=== PATIENT | female | born 1955 | race Caucasian/White ===

== ENCOUNTER → 2023-07-13 | Outpatient (CLI) | payer MEDICARE ==
--- NOTE | 2023-07-14 01:00 | MR ---
MRI CERVICAL SPINE: CLINICAL HISTORY: Neck pain, BUE weakness/numbness. Neck pain, BUE weakness/numbness. TECHNIQUE: Multiplanar, multisequence imaging of the cervical spine is performed without IV contrast. COMPARISON: Cervical spine x-ray May 18, 2021. MRI cervical spine February 20, 2019 FINDINGS: Sagittal images of the cervical spine show the craniocervical junction to appear within nor mal limits. The cervical and upper thoracic spinal cord is normal in course, caliber, and signal. V ertebral alignment is anatomic. Artifact from anterior fusion plate and disc material C5-C6 and C6-C 7 levels is present. The vertebral body and intravertebral disk heights are normal above and below barreto rgical levels. The bone marrow signal intensity is within normal limits above and below surgical lev els.. Axial images show C2-C3 and C3-C4 levels appear within normal limits. Axial images at C4-C5 level showed broad based right paracentral disc protrusion and uncovertebral fa cet degenerative changes effacing the anterolateral thecal sac and causing mild to moderate right-antonette ed neural foraminal narrowing. Axial images at C5-C6 and C6-C7 level show susceptibility artifact. Axial images at C7-T1 level show slight anterolisthesis. Spinal canal is preserved. Bilateral neural foramina are patent. IMPRESSION: Postsurgical changes C5-C7 levels new from prior. Some degenerative changes C4-C5 and C7- T1 levels is now present.
== END | disposition home or self-care (01) ==
LOC: RADMRIMAIN 07:40 → MERGE 08:00
PROVIDERS: ATTEND Orthopaedic Surgery Orthopaedic Surgery of the Spine
DX: M47.23 Other spondylosis with radiculopathy, cervicothoracic region (principal); M50.222 Other cervical disc displacement at C5-C6 level; Z48.89 Encounter for other specified surgical aftercare; M50.223 Other cervical disc displacement at C6-C7 level; M50.123 Cervical disc disorder at C6-C7 level with radiculopathy; M50.122 Cervical disc disorder at C5-C6 level with radiculopathy; G99.2 Myelopathy in diseases classified elsewhere; E11.9 Type 2 diabetes mellitus without complications; E66.9 Obesity, unspecified; Z98.1 Arthrodesis status
CPT/HCPCS: 72141

== ENCOUNTER 2024-02-05 17:29 | Inpatient (IN) | payer MEDICARE ==
--- NOTE | 2024-02-05 17:57 | ED ---
Altered Mental Status HPI - General Source: patient, RN notes reviewed Mode of arrival: ambulatory Limitations: no limitations <Keara Guallpa - Last Filed: 02/05/24 20:09> - General Source: patient, RN notes reviewed, old records reviewed Mode of arrival: ambulatory Limitations: no limitations, altered mental status, physical limitation - History of Present Illness MD Complaint: altered mental status, confusion, weakness -: days(s) Consistency of Symptoms: getting worse Associated Symptoms: denies other symptoms <Pantera Cain - Last Filed: 02/09/24 23:08> - General Chief Complaint: Altered Mental Status Stated Complaint: AMS Time Seen by Provider: 02/05/24 17:40 - History of Present Illness Initial Comments: Quick [id number] female presents to the emergency department with family for altered mental status and confusion. Family states that they noticed a few days ago she started acting confused and became more tired and weak. Currently patient is denying symptoms of chest pain, shortness of breath, difficulty breathing, abdominal pain, headaches, urinary or bowel changes. (Keara Guallpa) This is a 69-year-old family presenting with patient for altered mental status and confusion that have been noticed for a few days now with recent increased fatigue and weakness family at bedside is concerned for patient's altered mental status and decreased activity level (Pantera Cain) - Related Data Home Medications Medication Instructions Recorded Confirmed metFORMIN HCL [Glucophage] 1,000 mg PO BID 05/07/21 02/06/24 Albuterol Inhaler [Ventolin Hfa 2 puff INHALATION RT-QID PRN 09/14/21 02/06/24 Inhaler] Ergocalciferol (Vitamin D2) 1,250 mcg PO DIRECTED 09/14/21 02/06/24 [Drisdol (50,000 Iu)] FLUoxetine HCL [PROzac] 60 mg PO DAILY 09/14/21 02/06/24 Gabapentin [Neurontin] 100 mg PO DIRECTED 09/14/21 02/06/24 Insulin Glargine,Hum.rec.anlog 1 dose SQ DIRECTED 09/14/21 02/06/24 [Lantus Solostar Pen] busPIRone HCl [Buspar] 5 mg PO BID PRN 09/14/21 02/06/24 Montelukast [Singulair] 10 mg PO DAILY 02/06/24 02/06/24 Omeprazole 40 mg PO DAILY 02/06/24 02/06/24 Rosuvastatin Calcium [Crestor] 40 mg PO DAILY 02/06/24 02/06/24 Previous Rx's Medication Instructions Recorded Losartan [Cozaar] 12.5 mg PO DAILY #15 tab 09/15/21 Metoprolol Tartrate [Lopressor] 25 mg PO BID #60 tab 09/15/21 Nitroglycerin Sl Tabs [Nitrostat] 0.4 mg SUBLINGUAL Q5M PRN #30 tab 09/15/21 Aspirin 81 mg PO DAILY tab 02/09/24 Ipratropium-Albuterol Nebulize 3 ml INHALATION TID #90 each 02/09/24 [Duoneb 0.5 mg-3 mg/3 ml Soln] Isosorbide Mononitrate ER [Imdur] 30 mg PO DAILY #0 02/09/24 Melatonin 3 mg PO HS PRN #30 tab 02/09/24 Nicotine 21Mg/24Hr Patch [Habitrol] 1 patch TRANSDERM DAILY #30 patch 02/09/24 Pantoprazole [Protonix] 40 mg PO AC-BRKFST #30 tab 02/09/24 dexAMETHasone ORAL [Hexadrol] 4 mg PO Q6HR #90 tab 02/09/24 Allergies Allergy/AdvReac Type Severity Reaction Status Date / Time codeine Allergy Anaphylaxis Verified 02/06/24 11:52 peanut Allergy Anaphylaxis Verified 02/06/24 11:52 Review of Systems ROS Other: All systems not noted in ROS Statement are negative. <Keara Guallpa - Last Filed: 02/05/24 20:09> ROS Other: All systems not noted in ROS Statement are negative. <Pantera Cain - Last Filed: 02/09/24 23:08> ROS Statement: Those systems with pertinent positive or pertinent negative responses have been documented in the HPI. Past Medical History Past Medical History: Cancer, COPD, Diabetes Mellitus, GERD/Reflux, Hyperlipidemia, Osteoarthritis (OA) Additional Past Medical History / Comment(s): Hx Covid Spring 2020. Uses O2 at 3L PRN. Hx rectal cancer within last 4 yrs(Can't remember exactly when). Bronchitis. Frequent ear infections. History of Any Multi-Drug Resistant Organisms: None Reported Past Surgical History: Cholecystectomy, Ear Surgery, Hernia Repair, Hysterectomy, Orthopedic Surgery Additional Past Surgical History / Comment(s): Hernia repair X3, throat surgery, ear surgeray X5, bilateral wrist surgery X5 total, hemorrhoidectomy - "was canc erous and they went back in to remove more". stents X 2 CX sep 13 2021. Past Anesthesia/Blood Transfusion Reactions: No Reported Reaction Past Psychological History: Anxiety, Depression Smoking Status: Current every day smoker Past Alcohol Use History: None Reported Past Drug Use History: None Reported - Past Family History Father Family Medical History: Cancer Mother Family Medical History: Cancer Additional Family Medical History / Comment(s): Thyroid cancer. <Keara Guallpa - Last Filed: 02/05/24 20:09> General Exam Limitations: no limitations <Keara Guallpa - Last Filed: 02/05/24 20:09> Limitations: no limitations, language barrier, altered mental status, physical limitation General appearance: alert, in no apparent distress, anxious Head exam: Present: atraumatic, normocephalic, normal inspection Eye exam: Present: normal appearance, PERRL, EOMI. Absent: scleral icterus, conjunctival injection, periorbital swelling ENT exam: Present: normal exam, mucous membranes moist Neck exam: Present: normal inspection. Absent: tenderness, meningismus, lymphadenopathy Respiratory exam: Present: normal lung sounds bilaterally. Absent: respiratory distress, wheezes, rales, rhonchi, stridor Cardiovascular Exam: Present: regular rate, normal rhythm, normal heart sounds. Absent: systolic murmur, diastolic murmur, rubs, gallop, clicks GI/Abdominal exam: Present: soft, normal bowel sounds. Absent: distended, tenderness, guarding, rebound, rigid Extremities exam: Present: normal inspection, full ROM, normal capillary refill. Absent: tenderness, pedal edema, joint swelling, calf tenderness Back exam: Present: normal inspection Neurological exam: Present: alert, oriented X3, CN II-XII intact Psychiatric exam: Present: normal affect, normal mood Skin exam: Present: warm, dry, intact, normal color. Absent: rash <Pantera Cain - Last Filed: 02/09/24 23:08> - General Exam Comments Initial Comments: Visual Physical Exam Vital signs reviewed General: Well-appearing, nontoxic, no acute distress. Head: Normocephalic, atraumatic Eyes: PERRLA, EOMI ENT: Airway patent Chest: Nonlabored breathing Skin: No visual rash, normal skin tone Neuro: Alert and oriented 3 Musculoskeletal: No gross abnormalities (Stieler,Keara) Course <Pantera Cain - Last Filed: 02/09/24 23:08> Vital Signs 02/05/24 02/05/24 02/05/24 17:40 18:52 19:20 Temperature 97.9 F Pulse Rate 80 88 73 Respiratory 20 18 14 Rate Blood Pressure 113/74 122/95 120/81 O2 Sat by Pulse 96 95 93 L Oximetry 02/05/24 02/05/24 02/05/24 21:43 22:05 23:23 Temperature Pulse Rate 85 76 72 Respiratory 19 26 H 29 H Rate Blood Pressure 135/77 109/52 115/69 O2 Sat by Pulse 91 L 92 L 94 L Oximetry 02/06/24 02/06/24 02/06/24 00:14 00:59 05:27 Temperature Pulse Rate 71 66 70 Respiratory 26 H 22 20 Rate Blood Pressure 126/70 114/55 121/66 O2 Sat by Pulse 95 95 94 L Oximetry - Reevaluation(s) Reevaluation #1: 02/05/24 18:40 Medical records reviewed (Pantera Cain) Reevaluation #2: 02/05/24 18:40 Patient symptoms unchanged (Pantera Cain) Reevaluation #3: 02/05/24 18:40 Patient and family are both informed of significant symptoms (Pantera Cain) Reevaluation #4: Was pt. sent in by a medical professional or institution (, PA, BURRING WHEEL OPERATOR, urgent care, hospital, or retirement...) When possible be specific @ -no Did you speak to anyone other than the patient for history (EMS, parent, family, police, friend...)? What history was obtained from this source @ -no Did you review nursing and triage notes (agree or disagree)? Why? @ -agree Are old charts reviewed (outside hosp., previous admission, EMS record, old EKG, old radiological studies, urgent care reports/EKG's, retirement records)? Report findings @ -yes Differential Diagnosis (chest pain, altered mental status, abdominal pain women, abdominal pain men, vaginal bleeding, weakness, fever, dyspnea, syncope, headache, dizziness, GI bleed, back pain, seizure, CVA, palpatations, mental health, musculoskeletal)? @ -prior EKG interpreted by me (3pts min.). @ -yes X-rays interpreted by me (1pt min.). @ -yes negative for acute disease CT interpreted by me (1pt min.). @ -Brain positive for metastasis cancer, lung positive for cancer on CT chest abdomen pelvis U/S interpreted by me (1pt. min.). @ -no What testing was considered but not performed or refused? (CT, X-rays, U/S, labs)? Why? @ -none What meds were considered but not given or refused? Why? @ -none Did you discuss the management of the patient with other professionals (professionals i.e. , PA, BURRING WHEEL OPERATOR, lab, RT, psych nurse, executive secretary social welfare, auto rental clerk, teacher, adult probation officer, case manager specialist)? Give summary @ -no Was smoking cessation discussed for >3mins.? @ -no Was critical care preformed (if so, how long)? @ -yes31 Were there social determinants of health that impacted care today? How? (H omelessness, low income, unemployed, alcoholism, drug addiction, transportation, low edu. Level, literacy, decrease access to med. care, residential, rehab)? @ -none Was there de-escalation of care discussed even if they declined (Discuss DNR or withdrawal of care, Hospice)? DNR status @ -no What co-morbidities impacted this encounter? (DM, HTN, Smoking, COPD, CAD, Cancer, CVA, ARF, Chemo, Hep., AIDS, mental health diagnosis, sleep apnea, morbid obesity)? @ -none Was patient admitted / discharged? Hospital course, mention meds given and route, prescriptions, significant lab abnormalities, going to OR and other pertinent info. @ - 69 female to the ER for evaluation. Patient has history of colon cancer and coming in for altered mental status for a few days it appears to come and go but worsening today and patient is found to have significant metastatic cancer to the brain Admitted Undiagnosed new problem with uncertain prognosis? @ -no Drug Therapy requiring intensive monitoring for toxicity (Heparin, Nitro, Insulin, Cardizem)? @ -no Were any procedures done? @ -no Diagnosis/symptom? @ -lung cancer with brain metastasis Acute, or Chronic, or Acute on Chronic? @ -Acute Uncomplicated (without systemic symptoms) or Complicated (systemic symptoms)? @ -Complicated Side effects of treatment? @ -no Exacerbation, Progression, or Severe Exacerbation? @ -exacerbation Poses a threat to life or bodily function? How? (Chest pain, [place], NH, pneumonia, PE, COPD, DKA, ARF, appy, cholecystitis, CVA, Diverticulitis, Homicidal, Suicidal, threat to staff... and all critical care pts) @ -yes significant cancer (Pantera Cain) Reevaluation #5: Differential Altered Mental Status: Hypoglycemia, DKA, hypercapnia, ETOH, overdose, CO poisoning, trauma, myxedema coma, HTN encephalopathy, infection, encephalitis, psychosis, intercranial hemorrhage, hepatic encephalopathy, meningitis, CVA, this is not meant to be an all-inclusive list (Pantera Cain) - Consultations Consultation #1: Spoke with Dr. Lyn who agrees to admit this patient (Pantera Cain) Medical Decision Making <Keara Guallpa - Last Filed: 02/05/24 20:09> - Lab Data Result diagrams: 02/06/24 05:33 02/06/24 05:33 - Radiology Data Radiology results: report reviewed (CT brain positive for metastatic cancer with vasogenic edema, CT chest abdomen pelvis positive for lung cancer), image reviewed <Pantera Cain - Last Filed: 02/09/24 23:08> - Medical Decision Making I completed the quick note portion of this chart signed Keara Guallpa PA-C (Keara Guallpa) 69 female to the ER for evaluation. Patient has history of colon cancer and coming in for altered mental status for a few days it appears to come and go but worsening today and patient is found to have significant metastatic cancer to the brain which appears to be primary lung (Pantera Cain) - Lab Data Lab Results 02/05/24 02/05/24 02/05/24 Range/Units 18:30 18:30 18:30 WBC 9.0 (3.8-10.6) k/uL RBC 5.11 (3.80-5.40) m/uL Hgb 16.8 H (11.4-16.0) gm/dL Hct 48.2 H (34.0-46.0) % MCV 94.3 (80.0-100.0) fL MCH 32.8 (25.0-35.0) pg MCHC 34.8 (31.0-37.0) g/dL RDW 13.4 (11.5-15.5) % Plt Count 296 (150-450) k/uL MPV 8.1 Neutrophils % 68 % Lymphocytes % 22 % Monocytes % 5 % Eosinophils % 1 % Basophils % 1 % Neutrophils # 6.1 (1.3-7.7) k/uL Lymphocytes # 2.0 (1.0-4.8) k/uL Monocytes # 0.5 (0-1.0) k/uL Eosinophils # 0.1 (0-0.7) k/uL Basophils # 0.1 (0-0.2) k/uL PT 10.1 (10.0-12.5) sec INR 0.9 (<1.2) APTT 23.8 (22.0-30.0) sec Sodium 136 L (137-145) mmol/L Potassium 4.6 (3.5-5.1) mmol/L Chloride 103 (98-107) mmol/L Carbon Dioxide 26 (22-30) mmol/L Anion Gap 7 mmol/L BUN 13 (7-17) mg/dL Creatinine 0.55 (0.52-1.04) mg/dL Est GFR (CKD-EPI)AfAm >90 (>60 ml/min/1.73 sqM) Est GFR (CKD-EPI)NonAf >90 (>60 ml/min/1.73 sqM) Glucose 316 H (74-99) mg/dL Calcium 10.7 H (8.4-10.2) mg/dL Phosphorus 3.8 (2.5-4.5) mg/dL Magnesium 1.8 (1.6-2.3) mg/dL Total Bilirubin 1.1 (0.2-1.3) mg/dL AST 19 (14-36) U/L ALT 13 (4-34) U/L Alkaline Phosphatase 80 (38-126) U/L Troponin I (0.000-0.034) ng/mL Total Protein 7.2 (6.3-8.2) g/dL Albumin 4.6 (3.5-5.0) g/dL Influenza Type A (PCR) (Not Detectd) Influenza Type B (PCR) (Not Detectd) RSV (PCR) (Not Detectd) SARS-CoV-2 (PCR) (Not Detectd) 02/05/24 02/05/24 Range/Units 18:30 18:30 WBC (3.8-10.6) k/uL RBC (3.80-5.40) m/uL Hgb (11.4-16.0) gm/dL Hct (34.0-46.0) % MCV (80.0-100.0) fL MCH (25.0-35.0) pg MCHC (31.0-37.0) g/dL RDW (11.5-15.5) % Plt Count (150-450) k/uL MPV Neutrophils % % Lymphocytes % % Monocytes % % Eosinophils % % Basophils % % Neutrophils # (1.3-7.7) k/uL Lymphocytes # (1.0-4.8) k/uL Monocytes # (0-1.0) k/uL Eosinophils # (0-0.7) k/uL Basophils # (0-0.2) k/uL PT (10.0-12.5) sec INR (<1.2) APTT (22.0-30.0) sec Sodium (137-145) mmol/L Potassium (3.5-5.1) mmol/L Chloride (98-107) mmol/L Carbon Dioxide (22-30) mmol/L Anion Gap mmol/L BUN (7-17) mg/dL Creatinine (0.52-1.04) mg/dL Est GFR (CKD-EPI)AfAm (>60 ml/min/1.73 sqM) Est GFR (CKD-EPI)NonAf (>60 ml/min/1.73 sqM) Glucose (74-99) mg/dL Calcium (8.4-10.2) mg/dL Phosphorus (2.5-4.5) mg/dL Magnesium (1.6-2.3) mg/dL Total Bilirubin (0.2-1.3) mg/dL AST (14-36) U/L ALT (4-34) U/L Alkaline Phosphatase (38-126) U/L Troponin I <0.012 (0.000-0.034) ng/mL Total Protein (6.3-8.2) g/dL Albumin (3.5-5.0) g/dL Influenza Type A (PCR) Not Detected (Not Detectd) Influenza Type B (PCR) Not Detected (Not Detectd) RSV (PCR) Not Detected (Not Detectd) SARS-CoV-2 (PCR) Not Detected (Not Detectd) Critical Care Time Critical Care Time: Yes Total Critical Care Time: 31 <Pantera Cain - Last Filed: 02/09/24 23:08> Disposition <Keara Guallpa - Last Filed: 02/05/24 20:09> Is patient prescribed a controlled substance at d/c from ED?: No Time of Disposition: 20:00 <Pantera Cain - Last Filed: 02/09/24 23:08> Clinical Impression: Altered mental status, Delirium due to general medical condition, Metastatic cancer to brain Disposition: ADMITTED IP TO THIS HOSP
--- NOTE | 2024-02-05 18:19 | CT ---
EXAMINATION TYPE: CT brain wo con DATE OF EXAM: 02/05/2024 COMPARISON: None INDICATION: fatigue, confusion, weakness and AMS DLP: 1154.4 mGycm, Automated exposure control for dose reduction was used. CONTRAST: None CT of the brain is performed utilizing 3 mm thick sections through the posterior fossa and 3 mm thick sections through the remaining calvarium. Study is performed within 24 hours of arrival to the hosp ital. No abnormal hyperdensity is present to suggest an acute intracranial hemorrhage. Numerous metastatic lesions are present. The largest is within the right frontal lobe measuring 3.7 x 2.8 cm. The largest in the left frontal lobe white matter with some surrounding vasogenic edema barry ures 1.9 cm. There is a large left cerebellar mass posterior lateral region measuring 2.4 cm. Additio nal notable lesions would include a midline cerebellum measuring 1.5 cm there appears to be a lesion within the left frontal corpus callosum measuring 2.3 x 1.2 cm. Additional lesions are present bilate rally in both supratentorial and infratentorial regions. No acute infarcts are evident. Ventricles and sulci are appropriate for the patient age. There is displacement from vasogenic edema and mass lesions. Paranasal sinuses and mastoid air cells within the [id number] are clear. IMPRESSION: 1. Multiple bilateral supratentorial and infratentorial lesions likely on the basis of metastatic d isease. Vasogenic edema greatest in the right frontal lobe and to a milder degree within the left fro ntal lobe and left cerebellum are present. [facility], Workstation: [facility], 02/05/2024 6:16 PM
[2024-02-05] MEDS: SODIUM CHLORIDE 0.9% 500 ML 500 ML IV STA (18:47)
[2024-02-05] MEDS: DEXAMETHASONE SOD PHOSPHATE 10 MG/ML 1 ML VIAL IVP STA (18:47)
[2024-02-05 18:56] LABS: INR 0.9 (<1.2); Partial Thromboplastin Time 23.8 sec (22.0-30.0); Prothrombin Time 10.1 sec (10.0-12.5)
[2024-02-05 18:57] LABS: ALT 13 U/L (4-34); African American GFR (CKD) >90 (>60 ml/min/1.73 sqM); Albumin 4.6 g/dL (3.5-5.0); Anion Gap 7 mmol/L; Blood Urea Nitrogen 13 mg/dL (7-17); Calcium 10.7 mg/dL (8.4-10.2); Carbon Dioxide 26 mmol/L (22-30); Chloride 103 mmol/L (98-107); Glucose 316 mg/dL (74-99); Non-African American GFR(CKD) >90 (>60 ml/min/1.73 sqM); Sodium 136 mmol/L (137-145); Total Bilirubin 1.1 mg/dL (0.2-1.3); Total Protein 7.2 g/dL (6.3-8.2)
[2024-02-05 18:58] LABS: Basophils # (A) 0.1 k/uL (0-0.2); Basophils % (A) 1 %; Eosinophils # (A) 0.1 k/uL (0-0.7); Eosinophils % (A) 1 %; HCT 48.2 % (34.0-46.0); HGB 16.8 gm/dL (11.4-16.0); Lymphocytes % (A) 22 %; MCH 32.8 pg (25.0-35.0); MCHC 34.8 g/dL (31.0-37.0); MCV 94.3 fL (80.0-100.0); Mean Platelet Volume 8.1; Monocytes # (A) 0.5 k/uL (0-1.0); Monocytes % (A) 5 %; Neutrophils # (A) 6.1 k/uL (1.3-7.7); Neutrophils % (A) 68 %; Platelet Count 296 k/uL (150-450); RBC 5.11 m/uL (3.80-5.40); RDW 13.4 % (11.5-15.5)
[2024-02-05 19:12] LABS: AST 19 U/L (14-36); Alkaline Phosphatase 80 U/L (38-126); Magnesium 1.8 mg/dL (1.6-2.3); Phosphorus 3.8 mg/dL (2.5-4.5); Potassium 4.6 mmol/L (3.5-5.1)
[2024-02-05] MEDS ORDERED: MORPHINE SULFATE 4 MG/ML SYRINGE IV PRN (19:55)
[2024-02-05] MEDS ORDERED: NALOXONE 0.4 MG/ML 1 ML VIAL IV PRN (19:55)
[2024-02-05] MEDS: SODIUM CHLORIDE 0.9% 1,000 ML IV SCH ×2 (19:57→21:08)
--- NOTE | 2024-02-05 20:19 | CT ---
EXAMINATION TYPE: CT ChestAbdPelvis w con DATE OF EXAM: 02/05/2024 INDICATION: cancer staging, mets COMPARISON: None CT DLP: 1090.8 mGycm CONTRAST: Performed without Oral Contrast and with IV Contrast, patient injected with 100 ml mL of Isovue 370. TECHNIQUE: Axial images at 5 mm thick sections. Reconstructed images in the coronal plane. Delayed images through the kidneys. FINDINGS: CT CHEST: Portion of the thyroid visualized is normal. No suspicious lung nodules or focal infiltrates are present. There is an enlarged right peribronchial lymph node in the posterior left hilar region, series 201 im age 26 measuring 1.8 cm. Right infrahilar lymph node measures 1.4 cm. Within the posterior medial lef t lung is a spiculated mass measuring 2.2 x 1.1 cm. Primary metastatic neoplasm should be considered. Small triangular densities right posterior lateral lung base. This is nonspecific. Consider atelecta sis on this contralateral side The ascending aorta diameter at the level of the main pulmonary artery is 2.9 cm. The main pulmonary artery diameter at the bifurcation is 2.[address] ABDOMEN: Liver: There is mild fatty infiltration of the liver. There is a small hypodensity within the anterio r medial right lobe liver. This is nonspecific and could be a cyst among other etiologies. Spleen: Normal Pancreas: Normal Adrenal glands: Right adrenal gland is mildly prominent 1.6 cm. Left adrenal gland is not well visual ized. Gallbladder: Normal Kidneys: No masses are evident. No hydronephrosis is present. A large anterior lateral cyst measuri ng 5.4 cm in diameter right kidney. Delayed images were obtained through the kidneys, which remain u nremarkable. Aorta: Vascular calcification is within the aorta. Inferior vena cava: Normal. CT PELVIS: Anterior pelvic wall mesenteric fat containing hernia is present. This may have some loops of nondilated small bowel. Colon is adjacent. Loops of bowel within the abdomen and pelvis are normal. There are loops of bowel which are incom pletely distended or lack oral contrast limiting their evaluation. Appendix: Not visualized. There may be prior appendectomy Urinary bladder: Normal. Genitourinary structures: Uterus and ovaries are not identified. Osseous structures: No suspicious lytic or sclerotic lesions. IMPRESSION: 1. Small mass within the posterior medial left lung with prominent hilar adenopathy suspicious for richard ng cancer. PET/CT could be performed for confirmation. 2. Right renal cyst. 3. Mild fatty fixation of the liver. 4. Anterior pelvic wall hernia with mesenteric fat nondilated small bowel loops and adjacent:. [facility], Workstation: [facility], 02/05/2024 8:16 PM
[2024-02-05] MEDS ORDERED: HYDROcodone/APAP 5-325MG 1 EACH TAB PO PRN (21:14)
[2024-02-05] MEDS ORDERED: PANTOPRAZOLE 40 MG TABLET PO PRN (21:14)
[2024-02-05] MEDS ORDERED: busPIRone HCl 5 MG TAB PO PRN (21:14)
[2024-02-05] MEDS ORDERED: NITROGLYCERIN SL TABS 0.4 MG TAB SUBLINGUAL PRN (21:14)
[2024-02-05] MEDS: ATORVASTATIN 80 MG TAB PO SCH (21:53)
[2024-02-05] MEDS: GABAPENTIN 100 MG CAP PO SCH (21:53)
[2024-02-05] MEDS: METOPROLOL TARTRATE 25 MG TAB PO SCH (21:53)
[2024-02-05] MEDS: CLOTRIMAZOLE 1% CREAM 30 GM TUBE TOPICAL SCH (22:16)
[2024-02-05 23:19] LABS: Appearance,Urine Clear (Clear); Bilirubin,Urine Negative (Negative); Blood,Urine Negative (Negative); Color,Urine Light Yellow; Glucose,Urine (UA) 4+ (Negative); Ketones,Urine 1+ (Negative); Leukocyte Esterase,Urine Negative (Negative); Nitrite,Urine Negative (Negative); Protein,Urine Negative (Negative); Urobilinogen,Urine <2.0 mg/dL (<2.0)
[2024-02-05 23:22] LABS: Amphetamine Screen,Urine Not Detected (NotDetected); Barbiturate Screen,Urine Not Detected (NotDetected); Benzodiazepines Screen,Urine Not Detected (NotDetected); Cocaine Screen,Urine Not Detected (NotDetected); Methadone Screen, Urine Not Detected (NotDetected); Opiate Screen,Urine Not Detected (NotDetected); Oxycodone Screen, Urine Not Detected (NotDetected); Phencyclidine Screen,Urine Not Detected (NotDetected); Tricyclic Antidepressant,Urine Not Detected (NotDetected); Urn Cannabinoid Scrn Not Detected (NotDetected)
[2024-02-05 23:23] LABS: Specific Gravity,Urine >1.050 (1.001-1.035)
[2024-02-06 07:44] LABS: Glucose,Whole Blood 344 mg/dL (70-110)
[2024-02-06 08:40] LABS: Basophils # (A) 0.01 X 10*3/uL (0.00-0.10); Basophils % (A) 0.1 %; Eosinophils # (A) 0 X 10*3/uL (0.04-0.35); Eosinophils % (A) 0 %; HCT 45.5 % (37.2-46.3); HGB 15.4 g/dL (12.0-15.0); Lymphocytes # (A) 1.12 X 10*3/uL (0.90-5.00); Lymphocytes % (A) 14.3 %; MCH 32.1 pg (27.0-32.0); MCHC 33.8 g/dL (32.0-37.0); MCV 94.8 FL (80.0-97.0); Mean Platelet Volume 10.9 FL (9.5-12.2); Monocytes # (A) 0.08 X 10*3/uL (0.20-1.00); NRBC Per 100 WBC 0 X 10*3/uL (0.00-0.01); Neutrophils # (A) 6.61 X 10*3/uL (1.80-7.70); Neutrophils % (A) 84.2 %; Platelet Count 349 X 10*3/uL (140-440); RDW 12.7 % (11.5-14.5); WBC 7.85 X 10*3/uL (4.50-10.00)
[2024-02-06 08:50] LABS: ALT 12 U/L (8-44); AST 10 U/L (13-35); Albumin 4.2 g/dL (3.8-4.9); Albumin/Globulin Ratio 1.75 Ratio (1.60-3.17); Alkaline Phosphatase 82 U/L (41-126); Calcium 10.2 mg/dL (8.7-10.3); Carbon Dioxide 24.5 mmol/L (21.6-31.8); Chloride 100 mmol/L (96-109); Globulin 2.4 g/dL (1.6-3.3); Glucose 389 mg/dL (70-110); Phosphorus 4.4 mg/dL (2.4-5.1); Potassium 4.9 mmol/L (3.5-5.5); Sodium 137 mmol/L (135-145); Total Bilirubin 0.5 mg/dL (0.3-1.2); Total Protein 6.6 g/dL (6.2-8.2)
[2024-02-06] MEDS: ARIPiprazole 2 MG TAB PO SCH (08:52)
[2024-02-06] MEDS: ERGOCALCIFEROL 1,250 MCG (50,000 IU) CAPSULE PO SCH (08:52)
[2024-02-06] MEDS: ISOSORBIDE MONONITRATE ER 30 MG TAB.ER.24H PO SCH (08:53)
[2024-02-06] MEDS: LOSARTAN 25 MG TAB PO SCH (08:53)
[2024-02-06] MEDS: CLOPIDOGREL 75 MG TAB PO SCH (08:53)
[2024-02-06] MEDS: ASPIRIN 81 MG PO SCH (08:53)
[2024-02-06] MEDS: FLUoxetine HCL 20 MG CAP PO SCH (08:53)
[2024-02-06] MEDS: INSULIN DETEMIR (LEVEMIR) 100 UNIT/ML SYR SQ SCH (08:53)
[2024-02-06] MEDS ORDERED: MELATONIN 3 MG TABLET PO PRN (11:37)
[2024-02-06] MEDS ORDERED: LACTULOSE 20 GM/30 ML CUP PO PRN (11:37)
[2024-02-06] MEDS ORDERED: ALPRAZolam 0.25 MG TAB PO PRN (11:37)
[2024-02-06] MEDS ORDERED: CALCIUM CARBONATE 500 MG CHEWABLE PO PRN (11:37)
[2024-02-06] MEDS ORDERED: ACETAMINOPHEN TAB 325 MG TAB PO PRN (11:37)
[2024-02-06 12:53] LABS: Glucose,Whole Blood 386 mg/dL (70-110)
[2024-02-06] MEDS: ENOXAPARIN 40 MG/0.4 ML SYRINGE SQ SCH (13:02)
[2024-02-06] MEDS: NICOTINE 21MG/24HR PATCH TRANSDERM SCH (13:03)
[2024-02-06] MEDS: DEXAMETHASONE SOD PHOSPHATE 4 MG/ML 1 ML VIAL IVP SCH (13:03)
[2024-02-06] MEDS ORDERED: DEXTROSE 50% SYRINGE 50 ML IVP PRN ×4 (13:18→20:52)
[2024-02-06] MEDS: INSULIN ASPART (NovoLOG) 100 UNIT/ML VIAL SQ SCH (13:33)
--- NOTE | 2024-02-06 15:48 | P.CNPUL ---
History of Present Illness Consult date: 02/06/24 Requesting physician: Aston Lyn Reason for consult: abnormal CXR/CT Chief complaint: Pulmonary nodule. History of present illness: Pulmonary consult dated February 06, 2024. 69-year-old female seen today in room 532. The patient was evaluated, in the emergency room, yesterday, February 04. The patient apparently came into the emergency department, because of mental status changes, weakness, and confusion. Over the last couple of days prior to admission, she was apparently acting confused, became more weak and fatigued. She was denying any chest pain shortness of breath abdominal pain, etc. She also apparently denied any headaches. She apparently follows with a nurse practitioner who works for Dr. Martell, in [place]. The patient herself today was not a particular good historian. She was on 2 L of oxygen, getting saline at 75 cc an hour. She does have a prior history of tobacco use. We were consulted because of a small lesion, in the left lung, posteriorly. She apparently has a history of COPD, diabetes, gastroesophageal reflux disease, hyperlipidemia, osteoarthritis, and rectal cancer. When asked what kind of treatment she received for her rectal cancer, she could not recall. She apparently also has a history of anxiety and depression, and is a current every day smoker. Laboratory data includes a white count of 7.9, hemoglobin 15.4, hematocrit 45.5, and a normal platelet count. Coagulation studies were normal. Electrolyte profile was essentially normal. G lucose was 386. Urine was essentially negative. Drug screen was negative. She tested negative for influenza, RSV, and coronavirus. A brain CT showed multiple bilateral supratentorial and infratentorial lesions likely on the basis of metastatic disease. There is vasogenic edema greatest in the right frontal lobe and to a milder degree within the left frontal lobe. CT of the chest abdomen and pelvis revealed a small mass within the posterior medial left lung with prominent hilar adenopathy suspicious for lung cancer. A PET scan was recommended. Review of Systems REVIEW OF SYSTEMS: CONSTITUTIONAL: Weakness. NEUROLOGIC: Confusion, mental status changes. HEENT: [ Negative.] CARDIAC: [Negative.] PULMONARY: [Negative.] GI: [Negative.] : [Negative.] RHEUMATOLOGIC: [ Negative.] IMMUNOLOGIC: [ Negative.] ENDOCRINE: [Negative. ] DERMATOLOGIC: [Negative.] Past Medical History Past Medical History: Cancer, COPD, Diabetes Mellitus, GERD/Reflux, Hyperlipidemia, Osteoarthritis (OA) Additional Past Medical History / Comment(s): Hx Covid Spring 2020. Uses O2 at 3L PRN. Hx rectal cancer within last 4 yrs(Can't remember exactly when). Bronchitis. Frequent ear infections. History of Any Multi-Drug Resistant Organisms: None Reported Past Surgical History: Cholecystectomy, Ear Surgery, Hernia Repair, Hysterectomy, Orthopedic Surgery Additional Past Surgical History / Comment(s): Hernia repair X3, throat surgery, ear surgeray X5, bilateral wrist surgery X5 total, hemorrhoidectomy - "was cancerous and they went back in to remove more". stents X 2 CX sep 13 2021. Past Anesthesia/Blood Transfusion Reactions: No Reported Reaction Past Psychological History: Anxiety, Depression Smoking Status: Current every day smoker Past Alcohol Use History: None Reported Additional Past Alcohol Use History / Comment(s): Smokes cigars, 1 ppd, since 17 yrs of age. Past Drug Use History: None Reported - Past Family History Father Family Medical History: Cancer Mother Family Medical History: Cancer Additional Family Medical History / Comment(s): Thyroid cancer. Medications and Allergies Home Medications Medication Instructions Recorded Confirmed Type metFORMIN HCL [Glucophage] 1,000 mg PO BID 05/07/21 02/06/24 History Albuterol Inhaler [Ventolin Hfa 2 puff INHALATION RT-QID PRN 09/14/21 02/06/24 History Inhaler] Ergocalciferol (Vitamin D2) 1,250 mcg PO DIRECTED 09/14/21 02/06/24 History [Drisdol (50,000 Iu)] FLUoxetine HCL [PROzac] 60 mg PO DAILY 09/14/21 02/06/24 History Gabapentin [Neurontin] 100 mg PO DIRECTED 09/14/21 02/06/24 History Insulin Glargine,Hum.rec.anlog 1 dose SQ DIRECTED 09/14/21 02/06/24 History [Lantus Solostar Pen] busPIRone HCl [Buspar] 5 mg PO BID PRN 09/14/21 02/06/24 History Losartan [Cozaar] 12.5 mg PO DAILY #15 tab 09/15/21 02/06/24 Rx Metoprolol Tartrate [Lopressor] 25 mg PO BID #60 tab 09/15/21 02/06/24 Rx Nitroglycerin Sl Tabs [Nitrostat] 0.4 mg SUBLINGUAL Q5M PRN #30 tab 09/15/21 02/06/24 Rx Albuterol Nebulized [Ventolin 2.5 mg INHALATION RT-Q6H PRN 02/06/24 02/06/24 History Nebulized] Isosorbide Mononitrate ER [Imdur] 30 mg PO DIRECTED 02/06/24 02/06/24 History Ketoconazole 200 mg PO DAILY 02/06/24 02/06/24 History Montelukast [Singulair] 10 mg PO DAILY 02/06/24 02/06/24 History Omeprazole 40 mg PO DAILY 02/06/24 02/06/24 History Rosuvastatin Calcium [Crestor] 40 mg PO DAILY 02/06/24 02/06/24 History hydrOXYzine HCL [Atarax] 10 mg PO DAILY PRN 02/06/24 02/06/24 History hydroCHLOROthiazide [Hydrodiuril] 12.5 mg PO DAILY 02/06/24 02/06/24 History Allergies Allergy/AdvReac Type Severity Reaction Status Date / Time codeine Allergy Anaphylaxis Verified 02/06/24 11:52 peanut Allergy Anaphylaxis Verified 02/06/24 11:52 Physical Exam Osteopathic Statement: *. No significant issues noted on an osteopathic st ructural exam other than those noted in the History and Physical/Consult. Vitals: Vital Signs Temp Pulse Pulse Resp BP BP Pulse Ox 02/06/24 13:20 98.0 F 61 16 104/61 90 L 02/06/24 07:40 97.3 F L 71 16 123/76 96 02/06/24 05:27 70 20 121/66 94 L 02/06/24 00:59 66 22 114/55 95 02/06/24 00:14 71 26 H 126/70 95 02/05/24 23:23 72 29 H 115/69 94 L 02/05/24 22:05 76 26 H 109/52 92 L 02/05/24 21:43 85 19 135/77 91 L 02/05/24 19:20 73 14 120/81 93 L 02/05/24 18:52 88 18 122/95 95 02/05/24 17:40 97.9 F 80 20 113/74 96 Intake and Output 02/06/24 02/06/24 02/06/24 06:59 14:59 22:59 Intake Total 240 Balance 240 Intake: Oral 240 Other: Weight 85.729 kg No acute distress, oriented 3, very lethargic and somnolent. Not a particularly good historian. HEENT examination is grossly unremarkable. Mucous membranes are moist. No oral lesions. Neck supple. Full range of motion. No adenopathy thyromegaly or neck vein distention. Cardiovascular examination reveals regular rhythm rate. S1-S2 normal. No S3 or S4. No discernible murmur noted. Lungs reveal mostly clear breath sounds. Breath sounds are equal bilaterally. Scattered mild rhonchi. No crackles or wheezes. Abdomen soft bowel sounds are heard. No masses or tenderness. Extremities are intact. No cyanosis clubbing or edema. Skin is without rash or lesion. Neurologic examination is brief but nonfocal. Results - Laboratory Findings CBC and BMP: 02/06/24 05:33 02/06/24 05:33 PT/INR, D-dimer PT 10.1 sec (10.0-12.5) 02/05/24 18:30 INR 0.9 (<1.2) 02/05/24 18:30 Abnormal lab findings: Abnormal Labs 02/05/24 02/05/24 02/05/24 18:30 18:30 22:50 Hgb 16.8 H Hct 48.2 H MCH Monocytes # Eosinophils # Sodium 136 L Anion Gap Glucose 316 H POC Glucose (mg/dL) Calcium 10.7 H AST Ur Specific [place] >1.050 H Urine Glucose (UA) 4+ H Urine Ketones 1+ H 02/06/24 02/06/24 02/06/24 05:33 05:33 07:42 Hgb 15.4 H Hct MCH 32.1 H Monocytes # 0.08 L Eosinophils # 0 L Sodium Anion Gap 12.50 H Glucose 389 H POC Glucose (mg/dL) 344 H Calcium AST 10 L Ur Specific [place] Urine Glucose (UA) Urine Ketones 02/06/24 12:51 Hgb Hct MCH Monocytes # Eosinophils # Sodium Anion Gap Glucose POC Glucose (mg/dL) 386 H Calcium AST Ur Specific [place] Urine Glucose (UA) Urine Ketones - Diagnostic Findings Chest x-ray: image reviewed CT scan - chest: image reviewed Assessment and Plan Assessment: Acute mental status changes, secondary to vasogenic edema, from multiple cranial metastatic deposits. History of rectal carcinoma, treatment not known. Solitary pulmonary nodule, measuring 2.2 x 1.1 cm, posterior medial left lung, which could be primary lung malignancy, versus metastatic deposit. History of COPD from ongoing tobacco use. History of diabetes mellitus. History of hyperlipidemia. History of osteoarthritis. Prior history of coronavirus infection. History of anxiety/depression. Plan: Plan dated February 06, 2024. The patient is seen and evaluated, in room 532. She is very lethargic and somnolent, and not a particular good historian. Mental status changes likely related to her multiple intracranial metastatic deposits, with associated vasogenic edema. The patient has a very small lesion in the left lung base. The patient will need an outpatient PET scan. Also would be helpful to find out what treatment the patient has received for her rectal carcinoma. Additional recommendations and suggestions are forthcoming. The patient is currently on updrafts with albuterol sulfate and ipratropium bromide, and also is receiving Pulmicort 1 mg twice a day. We will continue to follow. Time with Patient: Greater than 30
[2024-02-06] MEDS: IPRATROPIUM-ALBUTEROL 3 ML NEB INHALATION SCH (15:51)
[2024-02-06] MEDS: BUDESONIDE 1 MG/2 ML NEBU INHALATION SCH (15:51)
--- NOTE | 2024-02-06 16:05 | P.CONS ---
History of Present Illness - Reason for Consult Consult date: 02/06/24 altered mental status Requesting physician: Santa Desir - Chief Complaint confusion - History of Present Illness The patient is a 69-year-old female presenting with multiple brain metastases and a left lung lesion with ipsilateral hilar adenopathy. She has a 50-pack-yea r smoking history. According to the patient chart, she has a history of rectal cancer. The patient presented to the emergency room on 02/05/2024. Her family reports that she has had increased confusion at home. She has also had a couple of episodes of hemoptysis. A computed tomography scan of the brain revealed numerous metastatic deposits, the largest in the right frontal lobe measuring 3. 7 x 2.8 cm with surrounding edema, as well as a large left cerebellar mass measuring 2.4 cm. A subsequent computed tomography scan of the chest, abdomen and pelvis revealed a 2.2 cm left lower lung lesion was suspicious left hilar adenopathy. At the time of my consultation, the patient is a bit slow to respond to questions. She has just been started on 4 mg of Decadron and has only had one dose so far. The patient reports no headaches or nausea. She has noted some increased difficulty with ambulation however. Review of Systems ROS unobtainable: due to mental status Past Medical History Past Medical History: Cancer, COPD, Diabetes Mellitus, GERD/Reflux, Hyperlipidemia, Osteoarthritis (OA) Additional Past Medical History / Comment(s): Hx Covid Spring 2020. Uses O2 at 3L PRN. Hx rectal cancer within last 4 yrs(Can't remember exactly when). Bronchitis. Frequent ear infections. History of Any Multi-Drug Resistant Organisms: None Reported Past Surgical History: Cholecystectomy, Ear Surgery, Hernia Repair, Hysterectomy, Orthopedic Surgery Additional Past Surgical History / Comment(s): Hernia repair X3, throat surgery, ear surgeray X5, bilateral wrist surgery X5 total, hemorrhoidectomy - "was cancerous and they went back in to remove more". stents X 2 CX sep 13 2021. Past Anesthesia/Blood Transfusion Reactions: No Reported Reaction Past Psychological History: Anxiety, Depression Smoking Status: Current every day smoker Past Alcohol Use History: None Reported Additional Past Alcohol Use History / Comment(s): Smokes cigars, 1 ppd, since 17 yrs of age. Past Drug Use History: None Reported - Past Family History Father Family Medical History: Cancer Mother Family Medical History: Cancer Additional Family Medical History / Comment(s): Thyroid cancer. Medications and Allergies Home Medications Medication Instructions Recorded Confirmed Type metFORMIN HCL [Glucophage] 1,000 mg PO BID 05/07/21 02/06/24 History Albuterol Inhaler [Ventolin Hfa 2 puff INHALATION RT-QID PRN 09/14/21 02/06/24 History Inhaler] Ergocalciferol (Vitamin D2) 1,250 mcg PO DIRECTED 09/14/21 02/06/24 History [Drisdol (50,000 Iu)] FLUoxetine HCL [PROzac] 60 mg PO DAILY 09/14/21 02/06/24 History Gabapentin [Neurontin] 100 mg PO DIRECTED 09/14/21 02/06/24 History Insulin Glargine,Hum.rec.anlog 1 dose SQ DIRECTED 09/14/21 02/06/24 History [Lantus Solostar Pen] busPIRone HCl [Buspar] 5 mg PO BID PRN 09/14/21 02/06/24 History Losartan [Cozaar] 12.5 mg PO DAILY #15 tab 09/15/21 02/06/24 Rx Metoprolol Tartrate [Lopressor] 25 mg PO BID #60 tab 09/15/21 02/06/24 Rx Nitroglycerin Sl Tabs [Nitrostat] 0.4 mg SUBLINGUAL Q5M PRN #30 tab 09/15/21 02/06/24 Rx Albuterol Nebulized [Ventolin 2.5 mg INHALATION RT-Q6H PRN 02/06/24 02/06/24 History Nebulized] Isosorbide Mononitrate ER [Imdur] 30 mg PO DIRECTED 02/06/24 02/06/24 History Ketoconazole 200 mg PO DAILY 02/06/24 02/06/24 History Montelukast [Singulair] 10 mg PO DAILY 02/06/24 02/06/24 History Omeprazole 40 mg PO DAILY 02/06/24 02/06/24 History Rosuvastatin Calcium [Crestor] 40 mg PO DAILY 02/06/24 02/06/24 History hydrOXYzine HCL [Atarax] 10 mg PO DAILY PRN 02/06/24 02/06/24 History hydroCHLOROthiazide [Hydrodiuril] 12.5 mg PO DAILY 02/06/24 02/06/24 History Allergies Allergy/AdvReac Type Severity Reaction Status Date / Time codeine Allergy Anaphylaxis Verified 02/06/24 11:52 peanut Allergy Anaphylaxis Verified 02/06/24 11:52 Physical Exam Vitals: Vital Signs Temp Pulse Pulse Resp BP BP Pulse Ox 02/06/24 15:52 60 02/06/24 13:20 98.0 F 61 16 104/61 90 L 02/06/24 07:40 97.3 F L 71 16 123/76 96 02/06/24 05:27 70 20 121/66 94 L 02/06/24 00:59 66 22 114/55 95 02/06/24 00:14 71 26 H 126/70 95 02/05/24 23:23 72 29 H 115/69 94 L 02/05/24 22:05 76 26 H 109/52 92 L 02/05/24 21:43 85 19 135/77 91 L 02/05/24 19:20 73 14 120/81 93 L 02/05/24 18:52 88 18 122/95 95 02/05/24 17:40 97.9 F 80 20 113/74 96 Intake and Output 02/06/24 02/06/24 02/06/24 06:59 14:59 22:59 Intake Total 240 Balance 240 Intake: Oral 240 Other: Weight 85.729 kg - Constitutional General appearance: no acute distress - EENT Eyes: EOMI, PERRLA ENT: hearing grossly normal - Neck Neck: no lymphadenopathy - Respiratory Respiratory: bilateral: CTA - Cardiovascular Rhythm: regular - Gastrointestinal General gastrointestinal: no distended, no tenderness - Integumentary Integumentary: pale - Neurologic Neurologic: CNII-XII intact - Musculoskeletal Musculoskeletal: strength equal bilaterally (patient limited cooperation on exam. Able to move all extremities.) - Psychiatric Psychiatric: no A&O x's 3 Results CBC & Chem 7: 02/06/24 05:33 02/06/24 05:33 Labs: Abnormal Lab Results - Last 24 Hours (Table) 02/05/24 02/05/24 02/05/24 Range/Units 18:30 18:30 22:50 Hgb 16.8 H (11.4-16.0) gm/dL Hct 48.2 H (34.0-46.0) % MCH (27.0-32.0) pg Monocytes # (0.20-1.00) X 10*3/uL Eosinophils # (0.04-0.35) X 10*3/uL Sodium 136 L (137-145) mmol/L Anion Gap (4.00-12.00) mmol/L Glucose 316 H (74-99) mg/dL POC Glucose (mg/dL) (70-110) mg/dL Calcium 10.7 H (8.4-10.2) mg/dL AST (13-35) U/L Ur Specific [place] >1.050 H (1.001-1.035) Urine Glucose (UA) 4+ H (Negative) Urine Ketones 1+ H (Negative) 02/06/24 02/06/24 02/06/24 Range/Units 05:33 05:33 07:42 Hgb 15.4 H (11.4-16.0) gm/dL Hct (34.0-46.0) % MCH 32.1 H (27.0-32.0) pg Monocytes # 0.08 L (0.20-1.00) X 10*3/uL Eosinophils # 0 L (0.04-0.35) X 10*3/uL Sodium (137-145) mmol/L Anion Gap 12.50 H (4.00-12.00) mmol/L Glucose 389 H (74-99) mg/dL POC Glucose (mg/dL) 344 H (70-110) mg/dL Calcium (8.4-10.2) mg/dL AST 10 L (13-35) U/L Ur Specific [place] (1.001-1.035) Urine Glucose (UA) (Negative) Urine Ketones (Negative) 02/06/24 Range/Units 12:51 Hgb (11.4-16.0) gm/dL Hct (34.0-46.0) % MCH (27.0-32.0) pg Monocytes # (0.20-1.00) X 10*3/uL Eosinophils # (0.04-0.35) X 10*3/uL Sodium (137-145) mmol/L Anion Gap (4.00-12.00) mmol/L Glucose (74-99) mg/dL POC Glucose (mg/dL) 386 H (70-110) mg/dL Calcium (8.4-10.2) mg/dL AST (13-35) U/L Ur Specific [place] (1.001-1.035) Urine Glucose (UA) (Negative) Urine Ketones (Negative) CT Scan - head: report reviewed, image reviewed Assessment and Plan Assessment: The patient is an 89-year-old male recently diagnosed with a likely metastatic non-small cell lung cancer of the right lung presenting with liver metastases. The patient was hospitalized secondary to chest pain and hemoptysis. Plan: 1. Brain metastases: MRI Pending. Agree with Decadron 4 mg Q6H + PPI. Co mputed tomography scan of the head is highly suspicious for metastatic disease involving the brain. I discussed with the patient's family that this is suspicious for metastases from a lung primary cancer, but will require additional workup. The patient has a history of a rectal cancer according to her chart, but I do not have any details of her treatment. It would be unlikely to have metastatic disease to the brain from rectal cancer in the absence of elsewhere disease. 2. Left lung lesion: Suspicious for lung primary cancer, especially considering ipsilateral adenopathy. Would consider biopsy to obtain tissue diagnosis. Time with Patient: Greater than 30
--- NOTE | 2024-02-06 16:48 | P.HPIM ---
History of Present Illness H&P Date: 02/06/24 Chief Complaint: Increased weakness confusion This is a pleasant 69-year-old patient follows with Dr. Martell. Patient is accompanied by her daughter and son-in-law and granddaughter in the room. Chronic medical condition include COPD, diabetes, GERD, hyperlipidemia, osteoarthritis, COVID in 2020, uses oxygen as needed,. Had rectal cancer treated with surgery about 4 years ago. Anxiety depression For about 3 days patient been slightly confused. Feeling more weak. Though able to get around. Able to get from the house to her mailbox. Poor appetite. Normally has a bowel movement once every week. Denies any pain. Patient had had a coronary stent placed, in 2021. Has some chronic shortness breath and cough. Sometimes yellow-white sputum. CT brain in the ER showed multiple bilateral supratentorial infratentorial lesions felt to be metastatic including vasogenic edema. Denies any focal weakness. Rather tired. Review of systems: GEN.: Weight loss, decreased appetite EYES: None HEENT: Denies any headache NECK: None RESPIRATORY: Cough short of breath CARDIOVASCULAR: None GASTROINTESTINAL: BM once a week e GENITOURINARY: None MUSCULOSKELETAL: None LYMPHATICS: None HEMATOLOGICAL: None PSYCHIATRY: Tired with sleepy NEUROLOGICAL: None Social history: Patient lives with her elderly mother 89 years of age. Smokes a pack a day for close to 50 years. No alcohol. Physical examination: VITAL SIGNS: 98, 61, 16, 104 x 61, 90% on 2 L GENERAL: BMI 30.5, reclining bed tired sleepy. EYES: Pupils equal. Conjunctiva fran l. HEENT: External appearance of nose and ears normal, oral cavity grossly normal. NECK: JVD not raised; masses not palpable. HEART: First and second heart sounds are normal; no edema. LUNGS: Respiratory rate increased, depressed breath sound prolonged expiration. ABDOMEN: Soft, nontender, liver spleen not palpable, no masses palpable. PSYCH: Able to answer question but then dozes off. l. MUSCULOSKELETAL:No Clubbing/cyanosis;muscles-grossly intact NEUROLOGICAL: Cranial nerves grossly intact; no facial asymmetry, power and sensation grossly intact. LYMPHATICS: No lymph nodes palpable in the axilla and neck INVESTIGATIONS, reviewed in the clinical context: February 05: White count 7.8 hemoglobin 15.4 platelets 349 sodium 137 potassium 4.9 creatinine 0.8 Urine tox screen: Negative Influenza type A, type B, RSV, COVID-19: Not detected CT brain: Multiple bilateral supratentorial infratentorial lesions. Vasogenic edema present. Chest abdomen and pelvis CT scan with contrast: Enlarged right peribronchial lymph node in the posterior left hilar region. 1.8 cm. Right infrahilar lymph node 1.4 cm. Left lung posterior medial spiculated mass 2.2 x 1.1 cm. Liver mild fatty infiltration. Assessment plan: -Patient has metastatic brain lesions with vasogenic edema. Causing acute metabolic encephalopathy/delirium. IV dexamethasone -Metastatic disease suspected lung cancer. Patient is a smoker for long time. Will need a tissue diagnosis. Consult pulmonary with a view to bronchoscopy. Consult oncology -Prior history of rectal cancer around 4 years ago that was surgically resected -Moderate COPD exacerbation in a current smoker DuoNeb 4 times daily. Pulmicort twice daily. -Chronic nicotine dependence cigarette smoker Nicotine patch -Hyperlipidemia Crestor 40 mg a day -Depression anxiety Prozac 60 mg a day BuSpar as needed -Diabetes mellitus type 2 on oral hypoglycemic Hold Glucophage. Accu-Cheks sliding scale. Lantus. -GERD Omeprazole 40 mg a day -Coronary artery devious stent in 2021 Add aspirin. Imdur ER. Cozaar. Crestor. -Full code Results of the testing were discussed with the patient daughter and son at the bedside. Consultation to pulmonary and oncology. Past Medical History Past Medical History: Cancer, COPD, Diabetes Mellitus, GERD/Reflux, Hyperlipidemia, Osteoarthritis (OA) Additional Past Medical History / Comment(s): Hx Covid Spring 2020. Uses O2 at 3L PRN. Hx rectal cancer within last 4 yrs(Can't remember exactly when). Bronchitis. Frequent ear infections. History of Any Multi-Drug Resistant Organisms: None Reported Past Surgical History: Cholecystectomy, Ear Surgery, Hernia Repair, Hysterectomy, Orthopedic Surgery Additional Past Surgical History / Comment(s): Hernia repair X3, throat surgery, ear surgeray X5, bilateral wrist surgery X5 total, hemorrhoidectomy - "was cancerous and they went back in to remove more". stents X 2 CX sep 13 2021. Past Anesthesia/Blood Transfusion Reactions: No Reported Reaction Past Psychological History: Anxiety, Depression Smoking Status: Current every day smoker Past Alcohol Use History: None Reported Additional Past Alcohol Use History / Comment(s): Smokes cigars, 1 ppd, since 17 yrs of age. Past Drug Use History: None Reported - Past Family History Father Family Medical History: Cancer Mother Family Medical History: Cancer Additional Family Medical History / Comment(s): Thyroid cancer. Medications and Allergies Home Medications Medication Instructions Recorded Confirmed Type metFORMIN HCL [Glucophage] 1,000 mg PO BID 05/07/21 02/06/24 History Albuterol Inhaler [Ventolin Hfa 2 puff INHALATION RT-QID PRN 09/14/21 02/06/24 History Inhaler] Ergocalciferol (Vitamin D2) 1,250 mcg PO DIRECTED 09/14/21 02/06/24 History [Drisdol (50,000 Iu)] FLUoxetine HCL [PROzac] 60 mg PO DAILY 09/14/21 02/06/24 History Gabapentin [Neurontin] 100 mg PO DIRECTED 09/14/21 02/06/24 History Insulin Glargine,Hum.rec.anlog 1 dose SQ DIRECTED 09/14/21 02/06/24 History [Lantus Solostar Pen] busPIRone HCl [Buspar] 5 mg PO BID PRN 09/14/21 02/06/24 History Losartan [Cozaar] 12.5 mg PO DAILY #15 tab 09/15/21 02/06/24 Rx Metoprolol Tartrate [Lopressor] 25 mg PO BID #60 tab 09/15/21 02/06/24 Rx Nitroglycerin Sl Tabs [Nitrostat] 0.4 mg SUBLINGUAL Q5M PRN #30 tab 09/15/21 02/06/24 Rx Albuterol Nebulized [Ventolin 2.5 mg INHALATION RT-Q6H PRN 02/06/24 02/06/24 History Nebulized] Isosorbide Mononitrate ER [Imdur] 30 mg PO DIRECTED 02/06/24 02/06/24 History Ketoconazole 200 mg PO DAILY 02/06/24 02/06/24 History Montelukast [Singulair] 10 mg PO DAILY 02/06/24 02/06/24 History Omeprazole 40 mg PO DAILY 02/06/24 02/06/24 History Rosuvastatin Calcium [Crestor] 40 mg PO DAILY 02/06/24 02/06/24 History hydrOXYzine HCL [Atarax] 10 mg PO DAILY PRN 02/06/24 02/06/24 History hydroCHLOROthiazide [Hydrodiuril] 12.5 mg PO DAILY 02/06/24 02/06/24 History Allergies Allergy/AdvReac Type Severity Reaction Status Date / Time codeine Allergy Anaphylaxis Verified 02/06/24 11:52 peanut Allergy Anaphylaxis Verified 02/06/24 11:52 Physical Exam Vitals: Vital Signs Temp Pulse Pulse Resp BP BP Pulse Ox 02/06/24 07:40 97.3 F L 71 16 123/76 96 02/06/24 05:27 70 20 121/66 94 L 02/06/24 00:59 66 22 114/55 95 02/06/24 00:14 71 26 H 126/70 95 02/05/24 23:23 72 29 H 115/69 94 L 02/05/24 22:05 76 26 H 109/52 92 L 02/05/24 21:43 85 19 135/77 91 L 02/05/24 19:20 73 14 120/81 93 L 02/05/24 18:52 88 18 122/95 95 02/05/24 17:40 97.9 F 80 20 113/74 96 Intake and Output 02/05/24 02/06/24 02/06/24 22:59 06:59 14:59 Other: Weight 85.729 kg 85.729 kg Results CBC & Chem 7: 02/06/24 05:33 02/06/24 05:33 Labs: Abnormal Lab Results - Last 24 Hours (Table) 02/05/24 02/05/24 02/05/24 Range/Units 18:30 18:30 22:50 Hgb 16.8 H (11.4-16.0) gm/dL Hct 48.2 H (34.0-46.0) % MCH (27.0-32.0) pg Monocytes # (0.20-1.00) X 10*3/uL Eosinophils # (0.04-0.35) X 10*3/uL Sodium 136 L (137-145) mmol/L Anion Gap (4.00-12.00) mmol/L Glucose 316 H (74-99) mg/dL POC Glucose (mg/dL) (70-110) mg/dL Calcium 10.7 H (8.4-10.2) mg/dL AST (13-35) U/L Ur Specific [place] >1.050 H (1.001-1.035) Urine Glucose (UA) 4+ H (Negative) Urine Ketones 1+ H (Negative) 02/06/24 02/06/24 02/06/24 Range/Units 05:33 05:33 07:42 Hgb 15.4 H (11.4-16.0) gm/dL Hct (34.0-46.0) % MCH 32.1 H (27.0-32.0) pg Monocytes # 0.08 L (0.20-1.00) X 10*3/uL Eosinophils # 0 L (0.04-0.35) X 10*3/uL Sodium (137-145) mmol/L Anion Gap 12.50 H (4.00-12.00) mmol/L Glucose 389 H (74-99) mg/dL POC Glucose (mg/dL) 344 H (70-110) mg/dL Calcium (8.4-10.2) mg/dL AST 10 L (13-35) U/L Ur Specific [place] (1.001-1.035) Urine Glucose (UA) (Negative) Urine Ketones (Negative) Thrombosis Risk Factor Assmnt - Choose All That Apply Each Factor Represents 1 point: Abnormal pulmonary function (COPD), Obesity (BMI >25) Each Risk Factor Represents 2 Points: Age 61-74 years Thrombosis Risk Factor Assessment Total Risk Factor Score: 4 Thrombosis Risk Factor Assessment Level: Moderate Risk
[2024-02-06 17:17] LABS: Glucose,Whole Blood 374 mg/dL (70-110)
[2024-02-06 19:59] LABS: Glucose,Whole Blood 426 mg/dL (70-110)
--- NOTE | 2024-02-06 20:52 | P.CONS ---
History of Present Illness - Reason for Consult Consult date: 02/06/24 cancer Requesting physician: Pantera Cain - Chief Complaint AMS - History of Present Illness Patient is a 69-year-old female with a history of nicotine dependence, approximate [id number] smoker. Patient presented to emergency room with complaints of altered mental status, and weakness. Upon admission CT brain without contrast showed multiple bilateral supratentorial and infratentorial lesions likely on the basis of metastatic disease. Vasogenic edema greatest in the right frontal lobe to a milder degree within the left frontal lobe and left cerebellum. CT chest abdomen pelvis showed small mass within the posterior medial left lung measuring 2.2 x 1.1 cm. With prominent hilar adenopathy. Right renal cyst. Mild fatty fixation of the liver. Anterior pelvic wall hernia. At today's visit patient reports she has had a mild weight loss. Denies nausea or vomiting and abd pain. Denies hemoptysis and acute changes in breathing. Denies visual disturbances and falls. Family stating cognition has somewhat improved since admission. WBC 7.8, hemoglobin 15.4, platelets 349,000. Creatinine 0.8, GFR 81. Patient was given 1 dose of dexamethasone 10 mg upon arrival to the ER. Review of Systems 10 point ROS is negative except as stated in the HPI Past Medical History Past Medical History: Cancer, COPD, Diabetes Mellitus, GERD/Reflux, Hyperlipidemia, Osteoarthritis (OA) Additional Past Medical History / Comment(s): Hx Covid Spring 2020. Uses O2 at 3 L PRN. Hx rectal cancer within last 4 yrs(Can't remember exactly when). Bronchitis. Frequent ear infections. History of Any Multi-Drug Resistant Organisms: None Reported Past Surgical History: Cholecystectomy, Ear Surgery, Hernia Repair, Hysterectomy , Orthopedic Surgery Additional Past Surgical History / Comment(s): Hernia repair X3, throat surgery, ear surgeray X5, bilateral wrist surgery X5 total, hemorrhoidectomy - "was cancerous and they went back in to remove more". stents X 2 CX sep 13 2021. Past Anesthesia/Blood Transfusion Reactions: No Reported Reaction Past Psychological History: Anxiety, Depression Smoking Status: Current every day smoker Past Alcohol Use History: None Reported Additional Past Alcohol Use History / Comment(s): Smokes cigars, 1 ppd, since 17 yrs of age. Past Drug Use History: None Reported - Past Family History Father Family Medical History: Cancer Mother Family Medical History: Cancer Additional Family Medical History / Comment(s): Thyroid cancer. Medications and Allergies Home Medications Medication Instructions Recorded Confirmed Type metFORMIN HCL [Glucophage] 1,000 mg PO BID 05/07/21 02/06/24 History Albuterol Inhaler [Ventolin Hfa 2 puff INHALATION RT-QID PRN 09/14/21 02/06/24 History Inhaler] Ergocalciferol (Vitamin D2) 1,250 mcg PO DIRECTED 09/14/21 02/06/24 History [Drisdol (50,000 Iu)] FLUoxetine HCL [PROzac] 60 mg PO DAILY 09/14/21 02/06/24 History Gabapentin [Neurontin] 100 mg PO DIRECTED 09/14/21 02/06/24 History Insulin Glargine,Hum.rec.anlog 1 dose SQ DIRECTED 09/14/21 02/06/24 History [Lantus Solostar Pen] busPIRone HCl [Buspar] 5 mg PO BID PRN 09/14/21 02/06/24 History Losartan [Cozaar] 12.5 mg PO DAILY #15 tab 09/15/21 02/06/24 Rx Metoprolol Tartrate [Lopressor] 25 mg PO BID #60 tab 09/15/21 02/06/24 Rx Nitroglycerin Sl Tabs [Nitrostat] 0.4 mg SUBLINGUAL Q5M PRN #30 tab 09/15/21 02/06/24 Rx Albuterol Nebulized [Ventolin 2.5 mg INHALATION RT-Q6H PRN 02/06/24 02/06/24 History Nebulized] Isosorbide Mononitrate ER [Imdur] 30 mg PO DIRECTED 02/06/24 02/06/24 History Ketoconazole 200 mg PO DAILY 02/06/24 02/06/24 History Montelukast [Singulair] 10 mg PO DAILY 02/06/24 02/06/24 History Omeprazole 40 mg PO DAILY 02/06/24 02/06/24 History Rosuvastatin Calcium [Crestor] 40 mg PO DAILY 02/06/24 02/06/24 History hydrOXYzine HCL [Atarax] 10 mg PO DAILY PRN 02/06/24 02/06/24 History hydroCHLOROthiazide [Hydrodiuril] 12.5 mg PO DAILY 02/06/24 02/06/24 History Allergies Allergy/AdvReac Type Severity Reaction Status Date / Time codeine Allergy Anaphylaxis Verified 02/06/24 11:52 peanut Allergy Anaphylaxis Verified 02/06/24 11:52 Physical Exam Vitals: Vital Signs Temp Pulse Pulse Resp BP BP Pulse Ox 02/06/24 07:40 97.3 F L 71 16 123/76 96 02/06/24 05:27 70 20 121/66 94 L 02/06/24 00:59 66 22 114/55 95 02/06/24 00:14 71 26 H 126/70 95 02/05/24 23:23 72 29 H 115/69 94 L 02/05/24 22:05 76 26 H 109/52 92 L 02/05/24 21:43 85 19 135/77 91 L 02/05/24 19:20 73 14 120/81 93 L 02/05/24 18:52 88 18 122/95 95 02/05/24 17:40 97.9 F 80 20 113/74 96 Intake and Output 02/05/24 02/06/24 02/06/24 22:59 06:59 14:59 Other: Weight 85.729 kg 85.729 kg - Constitutional General appearance: average body habitus, no acute distress - EENT Eyes: anicteric sclerae, EOMI ENT: hearing grossly normal - Respiratory Respiratory: bilateral: CTA - Cardiovascular Rhythm: regular - Gastrointestinal General gastrointestinal: soft, tenderness - Integumentary Integumentary: no cyanotic, no jaundiced - Musculoskeletal Musculoskeletal: generalized weakness - Psychiatric A&Ox 3, slow to respond, but answering questions appropriately Results CBC & Chem 7: 02/06/24 05:33 02/06/24 05:33 Labs: Abnormal Lab Results - Last 24 Hours (Table) 02/05/24 02/05/24 02/05/24 Range/Units 18:30 18:30 22:50 Hgb 16.8 H (11.4-16.0) gm/dL Hct 48.2 H (34.0-46.0) % MCH (27.0-32.0) pg Monocytes # (0.20-1.00) X 10*3/uL Eosinophils # (0.04-0.35) X 10*3/uL Sodium 136 L (137-145) mmol/L Anion Gap (4.00-12.00) mmol/L Glucose 316 H (74-99) mg/dL POC Glucose (mg/dL) (70-110) mg/dL Calcium 10.7 H (8.4-10.2) mg/dL AST (13-35) U/L Ur Specific [place] >1.050 H (1.001-1.035) Urine Glucose (UA) 4+ H (Negative) Urine Ketones 1+ H (Negative) 02/06/24 02/06/24 02/06/24 Range/Units 05:33 05:33 07:42 Hgb 15.4 H (11.4-16.0) gm/dL Hct (34.0-46.0) % MCH 32.1 H (27.0-32.0) pg Monocytes # 0.08 L (0.20-1.00) X 10*3/uL Eosinophils # 0 L (0.04-0.35) X 10*3/uL Sodium (137-145) mmol/L Anion Gap 12.50 H (4.00-12.00) mmol/L Glucose 389 H (74-99) mg/dL POC Glucose (mg/dL) 344 H (70-110) mg/dL Calcium (8.4-10.2) mg/dL AST 10 L (13-35) U/L Ur Specific [place] (1.001-1.035) Urine Glucose (UA) (Negative) Urine Ketones (Negative) CT scan - abdomen: report reviewed CT scan - chest: report reviewed CT Scan - head: report reviewed CT scan - pelvis: report reviewed Assessment and Plan (1) Altered mental status Current Visit: Yes Status: Acute Priority: High Code(s): R41.82 - ALTERED MENTAL STATUS, UNSPECIFIED SNOMED Code(s): 429184235 (2) Metastatic cancer to brain Current Visit: Yes Status: Acute Priority: High Code(s): C79.31 - SECONDARY MALIGNANT NEOPLASM OF BRAIN SNOMED Code(s): 73956552 Plan: Lung mass, brain mets: Presented to emergency room with complaints of altered mental status, and weakness. -Upon admission CT brain without contrast showed multiple bilateral supratentorial and infratentorial lesions likely on the basis of metastatic disease. Vasogenic edema greatest in the right frontal lobe to a milder degree within the left frontal lobe and left cerebellum. -CT chest abdomen pelvis showed small mass within the posterior medial left lung measuring 2.2 x 1.1 cm. With prominent hilar adenopathy. Right renal cyst. Mild fatty fixation of the liver. -Decadron 4mg q6hrs started -Case discussed with rad onc, consult placed for brain mets -MRI brain ordered -Pulmonary medicine consulted for evaluation for bronchoscopy/biopsy -Will continue to monitor course of hospitalization Results and POC discussed with pt and family. They were agreeable to the same Dr. attests: I have seen and examined patient, performed H&P, developed impression and plan of care. Discussed with dictator. Agree with do cumentation, dictated as a scribe
[2024-02-06 23:41] LABS: Glucose,Whole Blood 367 mg/dL (70-110)
[2024-02-06] MEDS: INSULIN REGULAR 100 UNIT in SODIUM CHLORIDE 0.9% 100 ML IV SCH (23:53)
[2024-02-07 00:46] LABS: Glucose,Whole Blood 408 mg/dL (70-110)
[2024-02-07 01:37] LABS: Glucose,Whole Blood 347 mg/dL (70-110)
[2024-02-07 02:42] LABS: Glucose,Whole Blood 319 mg/dL (70-110)
[2024-02-07 03:46] LABS: Glucose,Whole Blood 219 mg/dL (70-110)
[2024-02-07 04:36] LABS: Glucose,Whole Blood 142 mg/dL (70-110)
[2024-02-07 05:35] LABS: Glucose,Whole Blood 107 mg/dL (70-110)
[2024-02-07 06:59] LABS: Glucose,Whole Blood 138 mg/dL (70-110)
[2024-02-07 07:33] LABS: Glucose,Whole Blood 205 mg/dL (70-110)
[2024-02-07 08:30] LABS: Glucose,Whole Blood 189 mg/dL (70-110)
[2024-02-07 10:30] LABS: Glucose,Whole Blood 201 mg/dL (70-110)
--- NOTE | 2024-02-07 11:13 | MR ---
EXAMINATION TYPE: MR brain wo/w con DATE OF EXAM: 02/07/2024 COMPARISON: CT 02/05/2024 HISTORY: 69-year-old female Lung cancer, evaluating brain mets. TECHNIQUE: Multiplanar, multisequence images of the brain and brainstem were acquired before and aft er administration of 9 mL IV Gadavist. Diffusion weighted imaging is performed. FINDINGS: As seen on CT, multiple supratentorial and infratentorial lesions are present. These are heterogeneou s with varying degrees of in the larger lesions containing central necrosis would not enhancement. So me scattered intrinsic bright T1 signal suggest hemorrhagic metastases. The lesions have associated vasogenic edema. Largest lesion is anterior right frontal lobe measuring 3.2 cm. Mass effect from the vasogenic edema results in slight 4 mm of leftward midline shift of the anterior falx. No herniation is seen. Approximately 15 lesions right vertebral hemisphere. 2 lesions within the anterior genu of the corpus callosum measuring up to 2.0 cm. 12 within the left cerebral hemisphere. 1.7 cm lesion within the cerebellar vermis. 3 lesions within the right cerebellar hemisphere measuring up to 1.3 cm. 3 lesions within the left cerebellar hemisphere measuring up to 1.7 cm. No hydrocephalus or extra-axial fluid collection. Dural venous sinuses are patent. The craniocervical junction is normal. The visualized sinuses are clear and the globes are intact. Scattered fluid within the right mastoid air cells. Correlate for any mass to exclude mastoiditis. IMPRESSION: 1. Multiple brain metastases in both the supratentorial and infratentorial spaces. These are partiall y necrotic and hemorrhagic metastases. 2 lesions are present in the anterior genu of the corpus callo sum measuring up to 2.0 cm. 2. Largest lesion is within the anterior right frontal lobe measuring up to 3.2 cm. Lesions show vary ing degrees of vasogenic edema and the largest anterior right frontal lobe lesion causes 4 mm of left mauro midline shift of the anterior falx. 3. No hydrocephalus or herniation at this time. 4. Scattered fluid within the right mastoid air cells. Correlate for any mastoid pain to exclude mast oiditis. [facility], , 02/07/2024 11:10 AM
[2024-02-07 11:42] VITALS: BMI 32.9
[2024-02-07 11:53] LABS: Glucose,Whole Blood 196 mg/dL (70-110)
[2024-02-07 12:34] LABS: Glucose,Whole Blood 225 mg/dL (70-110)
--- NOTE | 2024-02-07 13:32 | P.PN ---
Subjective Progress Note Date: 02/07/24 Principal diagnosis: Pulmonary nodule. Pulmonary consult dated February 06, 2024. 69-year-old female seen today in room 532. The patient was evaluated, in the emergency room, yesterday, February 04. The patient apparently came into the emergency department, because of mental status changes, weakness, and confusion. Over the last couple of days prior to admission, she was apparently acting confused, became more weak and fatigued. She was denying any chest pain shortness of breath abdominal pain, etc. She also apparently denied any headaches. She apparently follows with a nurse practitioner who works for Dr. Martell, in [place]. The patient herself today was not a particular good historian. She was on 2 L of oxygen, getting saline at 75 cc an hour. She does have a prior history of tobacco use. We were consulted because of a small lesion, in the left lung, posteriorly. She apparently has a history of COPD, diabetes, gastroesophageal reflux disease, hyperlipidemia, osteoarthritis, and rectal cancer. When asked what kind of treatment she received for her rectal cancer, she could not recall. She apparently also has a history of anxiety and depression, and is a current every day smoker. Laboratory data includes a white count of 7.9, hemoglobin 15.4, hematocrit 45.5, and a normal platelet count. Coagulation studies were normal. Electrolyte profile was essentially normal. Glucose was 386. Urine was essentially negative. Drug screen was negative. She tested negative for influenza, RSV, and coronavirus. A brain CT showed multiple bilateral supratentorial and infratentorial lesions likely on the basis of metastatic disease. There is vasogenic edema greatest in the right frontal lobe and to a milder degree within the left frontal lobe. CT of the chest abdomen and pelvis revealed a small mass within the posterior medial left lung with prominent hilar adenopathy suspicious for lung cancer. A PET scan was recommended. Progress note dated February 07, 2024. 69-year-old female seen in consultation yesterday. Please see the extensive note above. The patient has a history of rectal cancer. We were consulted primarily because the chest x-ray, and more specifically the CT scan showed a small mass, within the posterior medial left lung, but prominent hilar adenopathy. A PET scan was recommended. Currently, the patient is on saline at 75 cc an hour. She is on an insulin drip at 3.7 units an hour. She is getting nasal O2 at 3 L. Most recent blood work includes a glucose of 225. Brain MRI shows multiple brain metastasis, in both the supratentorial and infratentorial spaces. These are partially necrotic and hemorrhagic metastasis. 2 lesions are present in the anterior genu of the corpus callosum, measuring 2 cm. The largest lesion is in the anterior right frontal lobe measuring 3.2 cm. There is significant vasogenic edema. No hydrocephalus or herniation at this time. Objective - Vital Signs Vital signs: Vital Signs Temp 97.9 F 02/07/24 11:00 Pulse 60 02/07/24 11:46 Resp 16 02/07/24 11:00 BP 106/60 02/07/24 11:00 Pulse Ox 97 02/07/24 11:00 FiO2 Intake & Output 02/06/24 02/07/24 02/07/24 18:59 06:59 18:59 Intake Total 1320 56.407 18.839 Output Total 0 Balance 1320 56.407 18.839 Weight 85.729 kg 92.5 kg 92.5 kg Intake: Intake, IV Titration 56.407 18.839 Amount Insulin Regular 100 unit 56.407 18.839 In Sodium Chloride 0.9% 100 ml @ Titrate IV .Q0M [facility] Rx#:[id number] Oral 1320 Output: Urine 0 Other: Voiding Method Bedside Commode Bedside Commode Bedside Commode Diaper Diaper # Voids 1 1 - Exam No acute distress, oriented 3, very lethargic and somnolent. Not a partic ularly good historian. The patient is currently on 3 L nasal cannula. HEENT examination is grossly unremarkable. Mucous membranes are moist. No oral lesions. Neck supple. Full range of motion. No adenopathy thyromegaly or neck vein distention. Cardiovascular examination reveals regular rhythm rate. S1-S2 normal. No S3 or S4. No discernible murmur noted. Lungs reveal mostly clear breath sounds. Breath sounds are equal bilaterally. Scattered mild rhonchi. No crackles or wheezes. Abdomen soft bowel sounds are heard. No masses or tenderness. Extremities are intact. No cyanosis clubbing or edema. Skin is without rash or lesion. Neurologic examination is difficult to assess. - Labs CBC & Chem 7: 02/06/24 05:33 02/06/24 05:33 Labs: Abnormal Lab Results - Last 24 Hours (Table) 02/06/24 02/06/24 02/06/24 Range/Units 17:15 19:57 23:40 POC Glucose (mg/dL) 374 H 426 H 367 H (70-110) mg/dL Hemoglobin A1c (<=6.0) % 02/07/24 02/07/24 02/07/24 Range/Units 00:34 01:34 02:36 POC Glucose (mg/dL) 408 H 347 H 319 H (70-110) mg/dL Hemoglobin A1c (<=6.0) % 02/07/24 02/07/24 02/07/24 Range/Units 03:44 04:34 06:04 POC Glucose (mg/dL) 219 H 142 H (70-110) mg/dL Hemoglobin A1c 11.0 H (<=6.0) % 02/07/24 02/07/24 02/07/24 Range/Units 06:48 07:22 08:28 POC Glucose (mg/dL) 138 H 205 H 189 H (70-110) mg/dL Hemoglobin A1c (<=6.0) % 02/07/24 02/07/24 02/07/24 Range/Units 10:28 11:52 12:32 POC Glucose (mg/dL) 201 H 196 H 225 H (70-110) mg/dL Hemoglobin A1c (<=6.0) % Assessment and Plan Assessment: Acute mental status changes, secondary to vasogenic edema, from multiple cranial metastatic deposits. History of rectal carcinoma, treatment not known. Solitary pulmonary nodule, measuring 2.2 x 1.1 cm, posterior medial left lung, which could be primary lung malignancy, versus metastatic deposit. History of COPD from ongoing tobacco use. History of diabetes mellitus. History of hyperlipidemia. History of osteoarthritis. Prior history of coronavirus infection. History of anxiety/depression. Plan: Plan dated February 06, 2024. The patient is seen and evaluated, in room 532. She is very lethargic and somnolent, and not a particular good historian. Mental status changes likely r elated to her multiple intracranial metastatic deposits, with associated vasogenic edema. The patient has a very small lesion in the left lung base. The patient will need an outpatient PET scan. Also would be helpful to find out what treatment the patient has received for her rectal carcinoma. Additional recommendations and suggestions are forthcoming. The patient is currently on updrafts with albuterol sulfate and ipratropium bromide, and also is receiving Pulmicort 1 mg twice a day. We will continue to follow. Plan dated February 07, 2024. 69-year-old female seen in consultation yesterday. She came in with acute mental status changes. Brain CT, and brain MRI, show a pattern of multiple metastatic deposits, with surrounding vasogenic edema, plus other findings. The patient's overall prognosis remains very poor. The patient was placed on Decadron. We were consulted for a lesion, that is relatively small, in the left lung base. A PET scan was recommended. No biopsy at this time. Prognosis is very poor. Labs, x-rays, and medications are reviewed. Time with Patient: Less than 30
[2024-02-07 13:39] LABS: Glucose,Whole Blood 174 mg/dL (70-110)
[2024-02-07 15:51] LABS: Glucose,Whole Blood 188 mg/dL (70-110)
--- NOTE | 2024-02-07 17:19 | P.PN ---
Progress Note - Text Progress Note Date: 02/07/24 Chief Complaint: Increased weakness confusion This is a pleasant 69-year-old patient follows with Dr. Martell. Patient is accompanied by her daughter and son-in-law and granddaughter in the room. Chronic medical condition include COPD, diabetes, GERD, hyperlipidemia, osteoarthritis, COVID in 2020, uses oxygen as needed,. Had rectal cancer treated with surgery about 4 years ago. Anxiety depression For about 3 days patient been slightly confused. Feeling more weak. Though able to get around. Able to get from the house to her mailbox. Poor appetite. Normally has a bowel movement once every week. Denies any pain. Patient had had a coronary stent placed, in 2021. Has some chronic shortness breath and cough. Sometimes yellow-white sputum. CT brain in the ER showed multiple bilateral supratentorial infratentorial lesions felt to be metastatic including vasogenic edema. Denies any focal weakness. Rather tired. February 06: Daughter at the bedside. Patient is tired. Eating small amounts. Seen by Dr. Ramires from pulmonary. He feels the lung lesion is very small. Not really amenable to biopsy. MRI brain was done. Active Medications Acetaminophen (Acetaminophen Tab 325 Mg Tab) 650 mg PO Q6HR PRN PRN Reason: Mild Pain or Fever > 100.5 Hydrocodone Bitart/Acetaminophen (Hydrocodone/Apap 5-325mg 1 Each Tab) 1 each PO Q6HR PRN PRN Reason: Pain Albuterol/Ipratropium (Ipratropium-Albuterol 3 Ml Neb) 3 ml INHALATION RT-QID [facility] Last Admin: 02/07/24 16:03 Dose: 3 ml Alprazolam (Alprazolam 0.25 Mg Tab) 0.25 mg PO Q6HR PRN PRN Reason: Anxiety Aspirin (Aspirin 81 Mg) 81 mg PO DAILY [facility] Last Admin: 02/07/24 09:16 Dose: 81 mg Atorvastatin Calcium (Atorvastatin 80 Mg Tab) 80 mg PO HS [facility] Last Admin: 02/06/24 21:17 Dose: 80 mg Budesonide (Budesonide 1 Mg/2 Ml Nebu) 1 mg INHALATION RT-BID [facility] Last Admin: 02/07/24 08:18 Dose: 1 mg Buspirone HCl (Buspirone Hcl 5 Mg Tab) 5 mg PO BID PRN PRN Reason: Anxiety Calcium Carbonate/Glycine (Calcium Carbonate 500 Mg Chewable) 1,000 mg PO Q4HR PRN PRN Reason: Dyspepsia Clotrimazole (Clotrimazole 1% Cream 30 Gm Tube) 1 applic TOPICAL BID [facility] Last Admin: 02/07/24 09:16 Dose: Not Given Dexamethasone Sodium Phosphate (Dexamethasone Sod Phosphate 4 Mg/Ml 1 Ml Vial) 4 mg IVP Q6HR [facility] Last Admin: 02/07/24 12:24 Dose: 4 mg Dextrose/Water (Dextrose 50% Syringe 50 Ml) 25 ml IVP PER PROTOCOL PRN; Protocol PRN Reason: Hypoglycemia Dextrose/Water (Dextrose 50% Syringe 50 Ml) 50 ml IVP PER PROTOCOL PRN; Protocol PRN Reason: Hypoglycemia Dextrose/Water (Dextrose 50% Syringe 50 Ml) 25 ml IVP PER PROTOCOL PRN; Protocol PRN Reason: Hypoglycemia Dextrose/Water (Dextrose 50% Syringe 50 Ml) 50 ml IVP PER PROTOCOL PRN; Protocol PRN Reason: Hypoglycemia Enoxaparin Sodium (Enoxaparin 40 Mg/0.4 Ml Syringe) 40 mg SQ DAILY [facility] Last Admin: 02/07/24 09:17 Dose: 40 mg Ergocalciferol (Ergocalciferol 1,250 Mcg (50,000 Iu) Capsule) 1,250 mcg PO MOWE [facility] Last Admin: 02/06/24 08:52 Dose: 1,250 mcg Fluoxetine HCl (Fluoxetine Hcl 20 Mg Cap) 60 mg PO DAILY [facility] Last Admin: 02/07/24 09:16 Dose: 60 mg Gabapentin (Gabapentin 100 Mg Cap) 100 mg PO TID [facility] Last Admin: 02/07/24 09:17 Dose: 100 mg Sodium Chloride (Saline 0.9%) 1,000 mls @ 130 mls/hr IV .Q7H42M [facility] Last Admin: 02/07/24 16:49 Dose: Not Given Sodium Chloride (Saline 0.9%) 1,000 mls @ 75 mls/hr IV .[id number] [facility] Last Admin: 02/07/24 12:24 Dose: 75 mls/hr Insulin Human Regular 100 unit (/ Sodium Chloride) 100 mls @ 0 mls/hr IV .Q0M [facility]; Protocol Last Admin: 02/07/24 13:38 Dose: 2.33 units/hr, 2.33 mls/hr Isosorbide Mononitrate (Isosorbide Mononitrate Er 30 Mg Tab.Er.24h) 30 mg PO DAILY [facility] Last Admin: 02/07/24 09:17 Dose: 30 mg Lactulose (Lactulose 20 Gm/30 Ml Cup) 20 gm PO DAILY PRN PRN Reason: Constipation Losartan Potassium (Losartan 25 Mg Tab) 12.5 mg PO DAILY [facility] Last Admin: 02/07/24 09:16 Dose: 12.5 mg Melatonin (Melatonin 3 Mg Tablet) 3 mg PO HS PRN PRN Reason: Insomnia Metoprolol Tartrate (Metoprolol Tartrate 25 Mg Tab) 25 mg PO BID [facility] Last Admin: 02/07/24 09:18 Dose: 25 mg Naloxone HCl (Naloxone 0.4 Mg/Ml 1 Ml Vial) 0.2 mg IV Q2M PRN PRN Reason: Opioid Reversal Nicotine (Nicotine 21mg/24hr Patch) 1 patch TRANSDERM DAILY [facility] Last Admin: 02/07/24 09:17 Dose: 1 patch Nitroglycerin (Nitroglycerin Sl Tabs 0.4 Mg Tab) 0.4 mg SUBLINGUAL Q5M PRN PRN Reason: Chest Pain Ondansetron HCl (Ondansetron 4 Mg/2 Ml Vial) 4 mg IVP Q8HR PRN PRN Reason: Nausea And Vomiting Pantoprazole Sodium (Pantoprazole 40 Mg Tablet) 40 mg PO DAILY PRN PRN Reason: ACID REFLUX Social history: Patient lives with her elderly mother 89 years of age. Smokes a pack a day for close to 50 years. No alcohol. Physical examination: VITAL SIGNS: 97.9, 60, 16, 106 x 60, 97% on 3 L GENERAL: BMI 30.5, reclining bed tired a bit lethargic EYES: Pupils equal. Conjunctiva pale. HEENT: External appearance of nose and ears normal, oral cavity grossly normal. NECK: JVD not raised; masses not palpable. HEART: First and second heart sounds are normal; no edema. LUNGS: Respiratory rate increased, depressed breath sound prolonged expiration. ABDOMEN: Soft, nontender, liver spleen not palpable, no masses palpable. PSYCH: Tired but able to answer simple question MUSCULOSKELETAL:No Clubbing/cyanosis;muscles-grossly intact INVESTIGATIONS, reviewed in the clinical context: MRI brain [February 06] multiple brain metastasis involve the supratentorial infratentorial spaces. Partially necrotic and hemorrhagic. Varying degrees of vasogenic edema. February 05: White count 7.8 hemoglobin 15.4 platelets 349 sodium 137 potassium 4.9 creatinine 0.8 Urine tox screen: Negative Influenza type A, type B, RSV, COVID-19: Not detected CT brain: Multiple bilateral supratentorial infratentorial lesions. Vasogenic edema present. Chest abdomen and pelvis CT scan with contrast: Enlarged right peribronchial lymph node in the posterior left hilar region. 1.8 cm. Right infrahilar lymph node 1.4 cm. Left lung posterior medial spiculated mass 2.2 x 1.1 cm. Liver mild fatty infiltration. Assessment plan: -Patient has metastatic brain lesions with vasogenic edema. Causing acute metabolic encephalopathy/delirium. Not respond IV dexamethasone -Metastatic disease suspected lung cancer. smoker for long time. Will need a tissue diagnosis. To BASHA from pulmonary: Lung lesion too small for bronchoscopy -Prior history of rectal cancer around 4 years ago that was surgically resected -Moderate COPD exacerbation in a current smoker DuoNeb 4 times daily. Pulmicort twice daily. -Chronic nicotine dependence cigarette smoker Nicotine patch -Hyperlipidemia Crestor 40 mg a day -Depression anxiety Prozac 60 mg a day BuSpar as needed -Diabetes mellitus type 2 on oral hypoglycemic, uncontrolled with hyperglycemia secondary to steroids On insulin drip Tonight, start the patient on Lantus 36 units. Stop insulin drip. -GERD Omeprazole 40 mg a day -Coronary artery devious stent in 2021 Add aspirin. Imdur ER. Cozaar. Crestor. -Full code Follow with oncology. Radiation oncology also following. Discussed with daughters at bedside. Prognosis guarded. Past Medical History Past Medical History: Cancer, COPD, Diabetes Mellitus, GERD/Reflux, Hyperlipidemia, Osteoarthritis (OA) Additional Past Medical History / Comment(s): Hx Covid Spring 2020. Uses O2 at 3L PRN. Hx rectal cancer within last 4 yrs(Can't remember exactly when). Bronchitis. Frequent ear infections. History of Any Multi-Drug Resistant Organisms: None Reported Past Surgical History: Cholecystectomy, Ear Surgery, Hernia Repair, Hysterectomy, Orthopedic Surgery Additional Past Surgical History / Comment(s): Hernia repair X3, throat surgery, ear surgeray X5, bilateral wrist surgery X5 total, hemorrhoidectomy - "was cancerous and they went back in to remove more". stents X 2 CX sep 13 2021. Past Anesthesia/Blood Transfusion Reactions: No Reported Reaction Past Psychological History: Anxiety, Depression Smoking Status: Current every day smoker Past Alcohol Use History: None Reported Additional Past Alcohol Use History / Comment(s): Smokes cigars, 1 ppd, since 17 yrs of age. Past Drug Use History: None Reported
[2024-02-07 17:36] LABS: Glucose,Whole Blood 196 mg/dL (70-110)
[2024-02-07 19:51] LABS: Glucose,Whole Blood 290 mg/dL (70-110)
[2024-02-07 20:21] LABS: Glucose,Whole Blood 228 mg/dL (70-110)
[2024-02-07] MEDS: INSULIN DETEMIR (LEVEMIR) 100 UNIT/ML SYR SQ SCH (20:48)
[2024-02-07] MEDS ORDERED: DEXTROSE 50% SYRINGE 50 ML IVP PRN ×2 (22:00)
[2024-02-08 06:05] LABS: Glucose,Whole Blood 164 mg/dL (70-110)
[2024-02-08] MEDS: INSULIN ASPART (NovoLOG) 100 UNIT/ML VIAL SQ SCH (06:56)
--- NOTE | 2024-02-08 11:43 | P.PN ---
Subjective Progress Note Date: 02/08/24 Principal diagnosis: Pulmonary nodule. Pulmonary consult dated February 06, 2024. 69-year-old female seen today in room 532. The patient was evaluated, in the emergency room, yesterday, February 04. The patient apparently came into the emergency department, because of mental status changes, weakness, and confusion. Over the last couple of days prior to admission, she was apparently acting confused, became more weak and fatigued. She was denying any chest pain shortness of breath abdominal pain, etc. She also apparently denied any headaches. She apparently follows with a nurse practitioner who works for Dr. Martell, in [place]. The patient herself today was not a particular good historian. She was on 2 L of oxygen, getting saline at 75 cc an hour. She does have a prior history of tobacco use. We were consulted because of a small lesion, in the left lung, posteriorly. She apparently has a history of COPD, diabetes, gastroesophageal reflux disease, hyperlipidemia, osteoarthritis, and rectal cancer. When asked what kind of treatment she received for her rectal cancer, she could not recall. She apparently also has a history of anxiety and depression, and is a current every day smoker. Laboratory data includes a white count of 7.9, hemoglobin 15.4, hematocrit 45.5, and a normal platelet count. Coagulation studies were normal. Electrolyte profile was essentially normal. Glucose was 386. Urine was essentially negative. Drug screen was negative. She tested negative for influenza, RSV, and coronavirus. A brain CT showed multiple bilateral supratentorial and infratentorial lesions likely on the basis of metastatic disease. There is vasogenic edema greatest in the right frontal lobe and to a milder degree within the left frontal lobe. CT of the chest abdomen and pelvis revealed a small mass within the posterior medial left lung with prominent hilar adenopathy suspicious for lung cancer. A PET scan was recommended. Progress note dated February 07, 2024. 69-year-old female seen in consultation yesterday. Please see the extensive note above. The patient has a history of rectal cancer. We were consulted primarily because the chest x-ray, and more specifically the CT scan showed a small mass, within the posterior medial left lung, but prominent hilar adenopathy. A PET scan was recommended. Currently, the patient is on saline at 75 cc an hour. She is on an insulin drip at 3.7 units an hour. She is getting nasal O2 at 3 L. Most recent blood work includes a glucose of 225. Brain MRI shows multiple brain metastasis, in both the supratentorial and infratentorial spaces. These are partially necrotic and hemorrhagic metastasis. 2 lesions are present in the anterior genu of the corpus callosum, measuring 2 cm. The largest lesion is in the anterior right frontal lobe measuring 3.2 cm. There is significant vasogenic edema. No hydrocephalus or herniation at this time. Progress note dated February 08, 2024. 69-year-old female who is seen today in room 353. The patient is much more awake and alert. She is currently on room air. She is getting saline at 75 cc an hour. The patient has a abnormal CT scan of the chest, showing some thoracic adenopathy, as well as a lesion, and the left lower lobe. The patient will need robotic bronchoscopy, endobronchial ultrasound, for a pulmonary diagnosis. She does have a history of rectal carcinoma, and a history of multiple brain metastasis, seen both on CT scan, and better on MRI. No new laboratory data today other than a glucose of 164. Objective - Vital Signs Vital signs: Vital Signs Temp 97.8 F 02/08/24 10:55 Pulse 58 L 02/08/24 10:55 Resp 16 02/08/24 10:55 BP 120/65 02/08/24 10:55 Pulse Ox 95 02/08/24 08:30 FiO2 Intake & Output 02/07/24 02/08/24 02/08/24 18:59 06:59 18:59 Intake Total 387.296 546.882 Output Total 0 Balance 387.296 546.882 Weight 92.5 kg 82.2 kg Intake: Intake, IV Titration 33.296 6.882 Amount Insulin Regular 100 unit 33.296 6.882 In Sodium Chloride 0.9% 100 ml @ Titrate IV .Q0M [facility] Rx#:[id number] Oral 354 540 Output: Urine 0 Other: Voiding Method Bedside Commode Bedside Commode Bedside Commode Diaper Diaper Diaper # Voids 1 # Bowel Movements 1 - Exam No acute distress, oriented 3, much more awake and alert today. HEENT examination is grossly unremarkable. Mucous membranes are moist. No oral lesions. Neck supple. Full range of motion. No adenopathy thyromegaly or neck vein distention. Cardiovascular examination reveals regular rhythm rate. S1-S2 normal. No S3 or S4. No discernible murmur noted. Lungs reveal mostly clear breath sounds. Breath sounds are equal bilaterally. Scattered mild rhonchi. No crackles or wheezes. Abdomen soft bowel sounds are heard. No masses or tenderness. Extremities are intact. No cyanosis clubbing or edema. Skin is without rash or lesion. Neurologic examination is difficult to assess. - Labs CBC & Chem 7: 02/06/24 05:33 02/06/24 05:33 Labs: Abnormal Lab Results - Last 24 Hours (Table) 02/07/24 02/07/24 02/07/24 Range/Units 11:52 12:32 13:37 POC Glucose (mg/dL) 196 H 225 H 174 H (70-110) mg/dL 02/07/24 02/07/24 02/07/24 Range/Units 15:50 17:34 19:46 POC Glucose (mg/dL) 188 H 196 H 290 H (70-110) mg/dL 02/07/24 02/08/24 Range/Units 20:19 06:03 POC Glucose (mg/dL) 228 H 164 H (70-110) mg/dL Assessment and Plan Assessment: Acute mental status changes, secondary to vasogenic edema, from multiple cranial metastatic deposits. History of rectal carcinoma, treatment not known. Solitary pulmonary nodule, measuring 2.2 x 1.1 cm, posterior medial left lung, as well as mediastinal/thoracic adenopathy, which could be primary lung mal ignancy, versus metastatic deposit. History of COPD from ongoing tobacco use. History of diabetes mellitus. History of hyperlipidemia. History of osteoarthritis. Prior history of coronavirus infection. History of anxiety/depression. Plan: Plan dated February 06, 2024. The patient is seen and evaluated, in room 532. She is very lethargic and somnolent, and not a particular good historian. Mental status changes likely related to her multiple intracranial metastatic deposits, with associated vasogenic edema. The patient has a very small lesion in the left lung base. The patient will need an outpatient PET scan. Also would be helpful to find out what treatment the patient has received for her rectal carcinoma. Additional recommendations and suggestions are forthcoming. The patient is currently on updrafts with albuterol sulfate and ipratropium bromide, and also is receiving Pulmicort 1 mg twice a day. We will continue to follow. Plan dated February 07, 2024. 69-year-old female seen in consultation yesterday. She came in with acute me ntal status changes. Brain CT, and brain MRI, show a pattern of multiple metastatic deposits, with surrounding vasogenic edema, plus other findings. The patient's overall prognosis remains very poor. The patient was placed on Decadron. We were consulted for a lesion, that is relatively small, in the left lung base. A PET scan was recommended. No biopsy at this time. Prognosis is very poor. Labs, x-rays, and medications are reviewed. Plan dated February 08, 2024. The patient is seen today in room 353. She is much more awake and alert. The patient is currently on room air. She is getting saline at 75 cc an hour. The patient will need a robotic bronchoscopy, endobronchial ultrasound, for a diagnosis. That was relayed to medical oncology. Currently, the patient is much more awake and alert. I suspect that Decadron is helping with the vasogenic edema. She has multiple brain metastasis. She does have a history of prior rectal carcinoma. She might have a new lung cancer as well. Time with Patient: Less than 30
[2024-02-08 11:58] LABS: Glucose,Whole Blood 204 mg/dL (70-110)
--- NOTE | 2024-02-08 14:09 | P.PN ---
Progress Note - Text Progress Note Date: 02/08/24 Chief Complaint: Increased weakness confusion This is a pleasant 69-year-old patient follows with Dr. Martell. Patient is accompanied by her daughter and son-in-law and granddaughter in the room. Chronic medical condition include COPD, diabetes, GERD, hyperlipidemia, osteoarthritis, COVID in 2020, uses oxygen as needed,. Had rectal cancer treated with surgery about 4 years ago. Anxiety depression For about 3 days patient been slightly confused. Feeling more weak. Though able to get around. Able to get from the house to her mailbox. Poor appetite. Normally has a bowel movement once every week. Denies any pain. Patient had had a coronary stent placed, in 2021. Has some chronic shortness breath and cough. Sometimes yellow-white sputum. CT brain in the ER showed multiple bilateral supratentorial infratentorial lesions felt to be metastatic including vasogenic edema. Denies any focal weakness. Rather tired. February 06: Daughter at the bedside. Patient is tired. Eating small amounts. Seen by Dr. Ramires from pulmonary. He feels the lung lesion is very small. Not really amenable to biopsy. MRI brain was done. February 07: In bed. Daughter at the bedside. Sisters at bedside. Dr. RAMIRES will be arranging outpatient bronchoscopy with ultrasound with Dr. Negron. Spoke to patient's daughter and the patient. Daughter will take the patient to patient's brother's house. Hospital bed, walker, bedside commode will be ordered. Home health care. Spoke with chong classification case manager. Prognosis remains guarded. Did try to address the CODE STATUS. At this point remains full code. Active Medications Acetaminophen (Acetaminophen Tab 325 Mg Tab) 650 mg PO Q6HR PRN PRN Reason: Mild Pain or Fever > 100.5 Hydrocodone Bitart/Acetaminophen (Hydrocodone/Apap 5-325mg 1 Each Tab) 1 each PO Q6HR PRN PRN Reason: Pain Albuterol/Ipratropium (Ipratropium-Albuterol 3 Ml Neb) 3 ml INHALATION RT-QID [facility] Last Admin: 02/08/24 11:16 Dose: Not Given Alprazolam (Alprazolam 0.25 Mg Tab) 0.25 mg PO Q6HR PRN PRN Reason: Anxiety Aspirin (Aspirin 81 Mg) 81 mg PO DAILY [facility] Last Admin: 02/08/24 08:36 Dose: 81 mg Atorvastatin Calcium (Atorvastatin 80 Mg Tab) 80 mg PO HS [facility] Last Admin: 02/07/24 20:48 Dose: 80 mg Budesonide (Budesonide 1 Mg/2 Ml Nebu) 1 mg INHALATION RT-BID [facility] Last Admin: 02/08/24 07:44 Dose: 1 mg Buspirone HCl (Buspirone Hcl 5 Mg Tab) 5 mg PO BID PRN PRN Reason: Anxiety Calcium Carbonate/Glycine (Calcium Carbonate 500 Mg Chewable) 1,000 mg PO Q4HR PRN PRN Reason: Dyspepsia Clotrimazole (Clotrimazole 1% Cream 30 Gm Tube) 1 applic TOPICAL BID [facility] Last Admin: 02/08/24 08:36 Dose: Not Given Dexamethasone (Dexamethasone 4 Mg Tab) 4 mg PO Q6HR [facility] Dextrose/Water (Dextrose 50% Syringe 50 Ml) 25 ml IVP PER PROTOCOL PRN; Protocol PRN Reason: Hypoglycemia Dextrose/Water (Dextrose 50% Syringe 50 Ml) 50 ml IVP PER PROTOCOL PRN; Protocol PRN Reason: Hypoglycemia Enoxaparin Sodium (Enoxaparin 40 Mg/0.4 Ml Syringe) 40 mg SQ DAILY [facility] Last Admin: 02/08/24 08:36 Dose: 40 mg Ergocalciferol (Ergocalciferol 1,250 Mcg (50,000 Iu) Capsule) 1,250 mcg PO MOWE [facility] Last Admin: 02/08/24 08:36 Dose: 1,250 mcg Fluoxetine HCl (Fluoxetine Hcl 20 Mg Cap) 60 mg PO DAILY [facility] Last Admin: 02/08/24 08:36 Dose: 60 mg Gabapentin (Gabapentin 100 Mg Cap) 100 mg PO TID [facility] Last Admin: 02/08/24 08:36 Dose: 100 mg Sodium Chloride (Saline 0.9%) 1,000 mls @ 75 mls/hr IV .[id number] [facility] Last Admin: 02/08/24 12:28 Dose: 75 mls/hr Insulin Aspart (Insulin Aspart (Novolog) 100 Unit/Ml Vial) 0 unit SQ ACHS [facility]; Protocol Last Admin: 02/08/24 12:27 Dose: 6 unit Insulin Detemir (Insulin Detemir (Levemir) 100 Unit/Ml Syr) 36 unit SQ HS@2000 [facility] Last Admin: 02/07/24 20:48 Dose: 36 unit Isosorbide Mononitrate (Isosorbide Mononitrate Er 30 Mg Tab.Er.24h) 30 mg PO D AILY [facility] Last Admin: 02/08/24 08:35 Dose: 30 mg Lactulose (Lactulose 20 Gm/30 Ml Cup) 20 gm PO DAILY PRN PRN Reason: Constipation Losartan Potassium (Losartan 25 Mg Tab) 12.5 mg PO DAILY [facility] Last Admin: 02/08/24 08:37 Dose: 12.5 mg Melatonin (Melatonin 3 Mg Tablet) 3 mg PO HS PRN PRN Reason: Insomnia Metoprolol Tartrate (Metoprolol Tartrate 25 Mg Tab) 25 mg PO BID [facility] Last Admin: 02/08/24 08:35 Dose: 25 mg Naloxone HCl (Naloxone 0.4 Mg/Ml 1 Ml Vial) 0.2 mg IV Q2M PRN PRN Reason: Opioid Reversal Nicotine (Nicotine 21mg/24hr Patch) 1 patch TRANSDERM DAILY [facility] Last Admin: 02/08/24 08:37 Dose: Not Given Nitroglycerin (Nitroglycerin Sl Tabs 0.4 Mg Tab) 0.4 mg SUBLINGUAL Q5M PRN PRN Reason: Chest Pain Ondansetron HCl (Ondansetron 4 Mg/2 Ml Vial) 4 mg IVP Q8HR PRN PRN Reason: Nausea And Vomiting Pantoprazole Sodium (Pantoprazole 40 Mg Tablet) 40 mg PO AC-BRKFST [facility] Social history: Patient lives with her elderly mother 89 years of age. Smokes a pack a day for close to 50 years. No alcohol. Physical examination: VITAL SIGNS: 97.8, 58, 16, 120 x 65, 95% room air GENERAL: , reclining bed, tired EYES: Pupils equal. Conjunctiva pale. HEENT: External appearance of nose and ears normal, oral cavity grossly normal. NECK: JVD not raised; masses not palpable. HEART: First and second heart sounds are normal; no edema. LUNGS: Respiratory rate increased, depressed breath sound ABDOMEN: Soft, nontender, liver spleen not palpable, no masses palpable. PSYCH: Tired but able to answer simple question MUSCULOSKELETAL:No Clubbing/cyanosis;muscles-grossly intact INVESTIGATIONS, reviewed in the clinical context: MRI brain [February 06] multiple brain metastasis involve the supratentorial infratentorial spaces. Partially necrotic and hemorrhagic. Varying degrees of vasogenic edema. February 05: White count 7.8 hemoglobin 15.4 platelets 349 sodium 137 potassium 4.9 creatinine 0.8 Urine tox screen: Negative Influenza type A, type B, RSV, COVID-19: Not detected CT brain: Multiple bilateral supratentorial infratentorial lesions. Vasogenic edema present. Chest abdomen and pelvis CT scan with contrast: Enlarged right peribronchial lymph node in the posterior left hilar region. 1.8 cm. Right infrahilar lymph node 1.4 cm. Left lung posterior medial spiculated mass 2.2 x 1.1 cm. Liver mild fatty infiltration. Assessment plan: -Patient has metastatic brain lesions with vasogenic edema. Causing acute metabolic encephalopathy/delirium. Slow response IV dexamethasone -Metastatic disease suspected lung cancer. smoker for long time. Will need a tissue diagnosis. Per Dr. Ramires patient, bronchoscopy with ultrasound with Dr. Negron outpatient. -Prior history of rectal cancer around 4 years ago that was surgically resected -Moderate COPD exacerbation in a current smoker DuoNeb 4 times daily. Pulmicort twice daily. -Chronic nicotine dependence cigarette smoker Nicotine patch -Hyperlipidemia Crestor 40 mg a day -Depression anxiety Prozac 60 mg a day BuSpar as needed -Diabetes mellitus type 2 on oral hypoglycemic, uncontrolled with hyperglycemia secondary to steroids On insulin drip Tonight, start the patient on Lantus 36 units. Stop insulin drip. -GERD Omeprazole 40 mg a day -Coronary artery devious stent in 2021 Add aspirin. Imdur ER. Cozaar. Crestor. -Acute medical debility from above. Patient not really able to get out of bed except bedside commode. -Full code Discussed with patient and daughter at length. Patient be discharged to brother's house tomorrow. With equipment. Home health care. Outpatient bronchoscopy with ultrasound. Total time spent today about 50 minutes with over 30 minutes of discussion Past Medical History Past Medical History: Cancer, COPD, Diabetes Mellitus, GERD/Reflux, Hyperlipidemia, Osteoarthritis (OA) Additional Past Medical History / Comment(s): Hx Covid Spring 2020. Uses O2 at 3L PRN. Hx rectal cancer within last 4 yrs(Can't remember exactly when). Bronchitis. Frequent ear infections. History of Any Multi-Drug Resistant Organisms: None Reported Past Surgical History: Cholecystectomy, Ear Surgery, Hernia Repair, Hysterectomy, Orthopedic Surgery Additional Past Surgical History / Comment(s): Hernia repair X3, throat surgery, ear surgeray X5, bilateral wrist surgery X5 total, hemorrhoidectomy - "was cancerous and they went back in to remove more". stents X 2 CX sep 13 2021. Past Anesthesia/Blood Transfusion Reactions: No Reported Reaction Past Psychological History: Anxiety, Depression Smoking Status: Current every day smoker Past Alcohol Use History: None Reported Additional Past Alcohol Use History / Comment(s): Smokes cigars, 1 ppd, since 17 yrs of age. Past Drug Use History: None Reported
[2024-02-08] MEDS: PANTOPRAZOLE 40 MG TABLET PO SCH (16:05)
[2024-02-08 16:26] LABS: Glucose,Whole Blood 272 mg/dL (70-110)
--- NOTE | 2024-02-08 16:37 | P.PN ---
Subjective Progress Note Date: 02/08/24 Principal diagnosis: Lung cancer - brain metastases Patient is more alert today. Able to answer questions - still feeling weak. Objective - Vital Signs Vital signs: Vital Signs Temp 97.8 F 02/08/24 10:55 Pulse 68 02/08/24 15:46 Resp 16 02/08/24 10:55 BP 120/65 02/08/24 10:55 Pulse Ox 95 02/08/24 08:30 FiO2 Intake & Output 02/07/24 02/08/24 02/08/24 18:59 06:59 18:59 Intake Total 387.296 546.882 118 Output Total 0 Balance 387.296 546.882 118 Weight 92.5 kg 82.2 kg Intake: Intake, IV Titration 33.296 6.882 Amount Insulin Regular 100 unit 33.296 6.882 In Sodium Chloride 0.9% 100 ml @ Titrate IV .Q0M [facility] Rx#:[id number] Oral 354 540 118 Output: Urine 0 Other: Voiding Method Bedside Commode Bedside Commode Bedside Commode Diaper Diaper Diaper # Voids 1 2 # Bowel Movements 1 - Constitutional General appearance: Present: no acute distress - EENT Eyes: Present: EOMI, PERRLA ENT: Present: hearing grossly normal - Neck Neck: Absent: lymphadenopathy - Respiratory Respiratory: bilateral: CTA - Cardiovascular Rhythm: regular - Musculoskeletal Musculoskeletal: Present: left sided weakness (Left upper extremity sluggish - 3+/5 strength.) - Psychiatric Psychiatric: Present: A&O x's 3 - Labs CBC & Chem 7: 02/06/24 05:33 02/06/24 05:33 Labs: Abnormal Lab Results - Last 24 Hours (Table) 02/07/24 02/07/24 02/07/24 Range/Units 17:34 19:46 20:19 POC Glucose (mg/dL) 196 H 290 H 228 H (70-110) mg/dL 02/08/24 02/08/24 Range/Units 06:03 11:57 POC Glucose (mg/dL) 164 H 204 H (70-110) mg/dL Assessment and Plan Assessment: 69 year old with likely new lung cancer and multiple brain metastases. Plan: 1. Brain metastases: Continue Decadron/PPI. Explained to family we are waiting on pathology to confirm diagnosis. However, considering the presentation - we can have the patient come down for CT sim to expedite treatment. I discussed the possibility of whole-brain radiotherapy. I discussed possible toxicity. Her family is hoping we can possibly do planning CT simulation tomorrow AM before discharge. Time with Patient: Less than 30
[2024-02-08] MEDS: dexAMETHasone 4 MG TAB PO SCH (17:42)
--- NOTE | 2024-02-08 19:02 | P.PN ---
Subjective Progress Note Date: 02/08/24 No acute events. Pt more alert. Answering questions. Reporting generalized weakness Objective - Vital Signs Vital signs: Vital Signs Temp 97.8 F 02/08/24 10:55 Pulse 58 L 02/08/24 10:55 Resp 16 02/08/24 10:55 BP 120/65 02/08/24 10:55 Pulse Ox 95 02/08/24 08:30 FiO2 Intake & Output 02/07/24 02/08/24 02/08/24 18:59 06:59 18:59 Intake Total 387.296 546.882 Output Total 0 Balance 387.296 546.882 Weight 92.5 kg 82.2 kg Intake: Intake, IV Titration 33.296 6.882 Amount Insulin Regular 100 unit 33.296 6.882 In Sodium Chloride 0.9% 100 ml @ Titrate IV .Q0M [facility] Rx#:[id number] Oral 354 540 Output: Urine 0 Other: Voiding Method Bedside Commode Bedside Commode Bedside Commode Diaper Diaper Diaper # Voids 1 2 # Bowel Movements 1 - Constitutional General appearance: Present: average body habitus, no acute distress - EENT Eyes: Present: anicteric sclerae, EOMI ENT: Present: hearing grossly normal - Respiratory Details: breathing is even and unlabored - Cardiovascular Details: skin warm and dry - Integumentary Integumentary: Absent: cyanotic - Musculoskeletal Musculoskeletal: Present: generalized weakness - Psychiatric Psychiatric: Present: A&O x's 3 - Labs CBC & Chem 7: 02/06/24 05:33 02/06/24 05:33 Labs: Abnormal Lab Results - Last 24 Hours (Table) 02/07/24 02/07/24 02/07/24 Range/Units 15:50 17:34 19:46 POC Glucose (mg/dL) 188 H 196 H 290 H (70-110) mg/dL 02/07/24 02/08/24 02/08/24 Range/Units 20:19 06:03 11:57 POC Glucose (mg/dL) 228 H 164 H 204 H (70-110) mg/dL - Imaging and Cardiology MRI - head: report reviewed Assessment and Plan (1) Altered mental status Current Visit: Yes Status: Acute Priority: High Code(s): R41.82 - ALTERED MENTAL STATUS, UNSPECIFIED SNOMED Code(s): 001009424 (2) Metastatic cancer to brain Current Visit: Yes Status: Acute Priority: High Code(s): C79.31 - SECONDARY MALIGNANT NEOPLASM OF BRAIN SNOMED Code(s): 84537516 Plan: Lung mass, brain mets: Presented to emergency room with complaints of altered mental status, and weakness. -Upon admission CT brain without contrast showed multiple bilateral supratentorial and infratentorial lesions likely on the basis of metastatic disease. Vasogenic edema greatest in the right frontal lobe to a milder degree within the left frontal lobe and left cerebellum. -CT chest abdomen pelvis showed small mass within the posterior medial left lung measuring 2.2 x 1.1 cm. With prominent hilar adenopathy. Right renal cyst. Mild fatty fixation of the liver. -Continue Decadron 4mg q6hrs, will taper in outpt setting -Case discussed with rad onc, consult placed for brain mets -MRI brain ordered. Scan showed multiple brain metastases in both the supratentorial and infratentorial spaces. These are partially necrotic and hemorrhagic metastases. 2 lesions are present in the anterior genu of the corpus callosum measuring up to 2 cm. Largest lesion is within the anterior frontal lobe measuring up to 3.2 cm. Lesions show varying degree of vasogenic edema in the largest anterior right frontal lobe lesion causing 4 mm of leftward midline shift of the anterior falx. No hydrocephalus or herniation at this time. -CT simulation planned for tomorrow. Plan for whole brain radiation once biopsy/diagnosis confirmed -Pulmonary medicine consulted for evaluation for bronchoscopy/biopsy. Spoke with Dr. Ramires, plan for robotic EBUS, however this will have to be done in the outpt setting with Dr. Negron -Clinic f/u upon discharge Results and POC discussed in detail with pt and family. They were agreeable to t he same attests: I have seen and examined patient, performed H&P, developed impression and plan of care. Discussed with dictator. Agree with documentation, dictated as a scribe
[2024-02-08 20:08] LABS: Glucose,Whole Blood 223 mg/dL (70-110)
[2024-02-08] MEDS: ONDANSETRON 4 MG/2 ML VIAL IVP PRN (22:37)
[2024-02-08 23:05] VITALS: RESP 16
[2024-02-09 07:22] LABS: Glucose,Whole Blood 227 mg/dL (70-110)
[2024-02-09 12:21] LABS: Glucose,Whole Blood 225 mg/dL (70-110)
--- NOTE | 2024-02-09 12:43 | P.PN ---
Subjective Progress Note Date: 02/09/24 69-year-old female seen today in room 532. The patient was evaluated, in the emergency room, yesterday, February 04. The patient apparently came into the emergency department, because of mental status changes, weakness, and confusion. Over the last couple of days prior to admission, she was apparently acting confused, became more weak and fatigued. She was denying any chest pain shortness of breath abdominal pain, etc. She also apparently denied any headaches. She apparently follows with a nurse practitioner who works for Dr. Martell, in [place]. The patient herself today was not a particular good historian. She was on 2 L of oxygen, getting saline at 75 cc an hour. She does have a prior history of tobacco use. We were consulted because of a small lesion, in the left lung, posteriorly. She apparently has a history of COPD, diabetes, gastroesophageal reflux disease, hyperlipidemia, osteoarthritis, and rectal cancer. When asked what kind of treatment she received for her rectal cancer, she could not recall. She apparently also has a history of anxiety and depression, and is a current every day smoker. Laboratory data includes a white count of 7.9, hemoglobin 15.4, hematocrit 45.5, and a normal platelet count. Coagulation studies were normal. Electrolyte profile was essentially normal. Glucose was 386. Urine was essentially negative. Drug screen was negative. She tested negative for influenza, RSV, and coronavirus. A brain CT showed multiple bilateral supratentorial and infratentorial lesions likely on the basis of metastatic disease. There is vasogenic edema greatest in the right frontal lobe and to a milder degree within the left frontal lobe. CT of the chest abdomen and pelvis revealed a small mass within the posterior medial left lung with prominent hilar adenopathy suspicious for lung cancer. A PET scan was recommended. Progress note dated February 07, 2024. 69-year-old female seen in consultation yesterday. Please see the extensive note above. The patient has a history of rectal cancer. We were consulted primarily because the chest x-ray, and more specifically the CT scan showed a small mass, within the posterior medial left lung, but prominent hilar adenopathy. A PET scan was recommended. Currently, the patient is on saline at 75 cc an hour. She is on an insulin drip at 3.7 units an hour. She is getting nasal O2 at 3 L. Most recent blood work includes a glucose of 225. Brain MRI shows multiple brain metastasis, in both the supratentorial and infratentorial spaces. These are partially necrotic and hemorrhagic metastasis. 2 lesions are present in the anterior genu of the corpus callosum, measuring 2 cm. The largest lesion is in the anterior right frontal lobe measuring 3.2 cm. There is significant vasogenic edema. No hydrocephalus or herniation at this time. Progress note dated February 08, 2024. 69-year-old female who is seen today in room 353. The patient is much more awake and alert. She is currently on room air. She is getting saline at 75 cc an hour. The patient has a abnormal CT scan of the chest, showing some thoracic adenopathy, as well as a lesion, and the left lower lobe. The patient will need robotic bronchoscopy, endobronchial ultrasound, for a pulmonary diagnosis. She does have a history of rectal carcinoma, and a history of multiple brain metastasis, seen both on CT scan, and better on MRI. No new laboratory data today other than a glucose of 164. The patient is seen today February 09, 2024 in follow-up on the regular medical floor. She is currently resting comfortably in bed. Awake and alert in no acute distress. She is maintaining O2 saturations in the 90s on 2 L/min per nasal cannula. She has normal saline at 75 mL/h. Glucose 227. She is continued on Decadron 4 mg every 6 hours. Continued on bronchodilators. Lovenox for DVT prophylaxis. NicoDerm patch in place. She remains afebrile. Hemodynamically stable. The plan is to undergo planning CT simulation today. Objective - Vital Signs Vital signs: Vital Signs Temp 97.7 F 02/09/24 07:05 Pulse 68 02/09/24 08:58 Resp 16 02/09/24 07:05 BP 164/74 02/09/24 07:05 Pulse Ox 96 02/09/24 07:05 FiO2 Intake & Output 02/08/24 02/09/24 02/09/24 18:59 06:59 18:59 Intake Total 236 Output Total 450 Balance 236 -450 Intake: Oral 236 Output: Emesis 450 Other: Voiding Method Bedside Commode Bedside Commode Diaper Diaper # Voids 2 3 - Exam GENERAL EXAM: Alert, very weak, 69-year-old female, on 2 L nasal cannula, comfortable in no apparent distress. HEAD: Normocephalic. EYES: Normal reaction of pupils, equal size. NOSE: Clear with pink turbinates. THROAT: No erythema or exudates. NECK: No masses, no JVD. CHEST: No chest wall deformity. LUNGS: Equal air entry with no crackles, wheeze, rhonchi or dullness. CVS: S1 and S2 normal with no audible murmur, regular rhythm. ABDOMEN: No hepatosplenomegaly, normal bowel sounds, no guarding or rigidity. SPINE: No scoliosis or deformity SKIN: No rashes CENTRAL NERVOUS SYSTEM: No focal deficits, tone is normal in all 4 extremities. EXTREMITIES: There is no peripheral edema. No clubbing, no cyanosis. Peripheral pulses are intact. - Labs CBC & Chem 7: 02/06/24 05:33 02/06/24 05:33 Labs: Abnormal Lab Results - Last 24 Hours (Table) 02/08/24 02/08/24 02/09/24 Range/Units 16:24 20:07 07:20 POC Glucose (mg/dL) 272 H 223 H 227 H (70-110) mg/dL 02/09/24 Range/Units 12:20 POC Glucose (mg/dL) 225 H (70-110) mg/dL Assessment and Plan Assessment: Acute mental status changes, secondary to vasogenic edema, from multiple cranial metastatic deposits. History of rectal carcinoma, treatment not known. Solitary pulmonary nodule, measuring 2.2 x 1.1 cm, posterior medial left lung, as well as mediastinal/thoracic adenopathy, which could be primary lung malignancy, versus metastatic deposit. History of COPD from ongoing tobacco use. History of diabetes mellitus. History of hyperlipidemia. History of osteoarthritis. Prior history of coronavirus infection. History of anxiety/depression. Plan: The patient was seen and evaluated Stable on 2 L nasal cannula Remains on oral Decadron Plan is for CT simulation of the brain today Plan is for home with home care today Follow-up in our office in 1 week Will be set up for bronchoscopy and biopsies This patient was seen independently by the pulmonary nurse practitioner addressing pulmonary issues I have personally seen and examined the patient, performed the documentation and the assessment and plan as written. Number of minutes spent on the visit: 25.
--- NOTE | 2024-02-09 13:05 | P.PN ---
Subjective Progress Note Date: 02/09/24 No acute events. Pt more lethargic today, awakes to verbal stimuli and is answering questions appropriately. Denies pain, headache and visual disturbances. Objective - Vital Signs Vital signs: Vital Signs Temp 97.7 F 02/09/24 07:05 Pulse 68 02/09/24 08:58 Resp 16 02/09/24 07:05 BP 164/74 02/09/24 07:05 Pulse Ox 96 02/09/24 07:05 FiO2 Intake & Output 02/08/24 02/09/24 02/09/24 18:59 06:59 18:59 Intake Total 236 Output Total 450 Balance 236 -450 Intake: Oral 236 Output: Emesis 450 Other: Voiding Method Bedside Commode Bedside Commode Diaper Diaper # Voids 2 3 - Constitutional General appearance: Present: average body habitus, no acute distress - EENT Eyes: Present: anicteric sclerae, EOMI ENT: Present: hearing grossly normal - Respiratory Details: breathing is even and unlabored - Cardiovascular Details: skin warm and dry - Integumentary Integumentary: Absent: cyanotic - Musculoskeletal Musculoskeletal: Present: generalized weakness - Psychiatric Psychiatric: Present: A&O x's 3 - Labs CBC & Chem 7: 02/06/24 05:33 02/06/24 05:33 Labs: Abnormal Lab Results - Last 24 Hours (Table) 02/08/24 02/08/24 02/08/24 Range/Units 11:57 16:24 20:07 POC Glucose (mg/dL) 204 H 272 H 223 H (70-110) mg/dL 02/09/24 Range/Units 07:20 POC Glucose (mg/dL) 227 H (70-110) mg/dL Assessment and Plan (1) Altered mental status Current Visit: Yes Status: Acute Priority: High Code(s): R41.82 - ALTERED MENTAL STATUS, UNSPECIFIED SNOMED Code(s): 123252340 (2) Metastatic cancer to brain Current Visit: Yes Status: Acute Priority: High Code(s): C79.31 - SECOND AI MALIGNANT NEOPLASM OF BRAIN SNOMED Code(s): 52170476 Plan: Lung mass, brain mets: Presented to emergency room with complaints of altered mental status, and weakness. -Upon admission CT brain without contrast showed multiple bilateral s upratentorial and infratentorial lesions likely on the basis of metastatic disease. Vasogenic edema greatest in the right frontal lobe to a milder degree within the left frontal lobe and left cerebellum. -CT chest abdomen pelvis showed small mass within the posterior medial left lung measuring 2.2 x 1.1 cm. With prominent hilar adenopathy. Right renal cyst. Mild fatty fixation of the liver. -Continue Decadron 4mg q6hrs, will taper in outpt setting -Case discussed with rad onc, consult placed for brain mets -MRI brain ordered. Scan showed multiple brain metastases in both the supratento rial and infratentorial spaces. These are partially necrotic and hemorrhagic metastases. 2 lesions are present in the anterior genu of the corpus callosum measuring up to 2 cm. Largest lesion is within the anterior frontal lobe measuring up to 3.2 cm. Lesions show varying degree of vasogenic edema in the largest anterior right frontal lobe lesion causing 4 mm of leftward midline shift of the anterior falx. No hydrocephalus or herniation at this time. -CT simulation planned prior to discharge. Plan for whole brain radiation once biopsy/diagnosis confirmed -Pulmonary medicine consulted for evaluation for bronchoscopy/biopsy. Spoke with Dr. Ramires, plan for robotic EBUS, however this will have to be done in the outpt setting with Dr. Negron -Clinic f/u upon discharge Results and POC discussed in detail with pt and family. They were agreeable to the same DrSkip attests: I have seen and examined patient, performed H&P, developed impression and plan of care. Discussed with dictator. Agree with documentation, dictated as a scribe
[2024-02-09 13:25] VITALS: BP 171/96; PULSE 87; TEMP 98.1
--- NOTE | 2024-02-09 17:10 | P.PN ---
Progress Note - Text Progress Note Date: 02/09/24 Chief Complaint: Increased weakness confusion This is a pleasant 69-year-old patient follows with Dr. Martell. Patient is accompanied by her daughter and son-in-law and granddaughter in the room. Chronic medical condition include COPD, diabetes, GERD, hyperlipidemia, osteoarthritis, COVID in 2020, uses oxygen as needed,. Had rectal cancer treated with surgery about 4 years ago. Anxiety depression For about 3 days patient been slightly confused. Feeling more weak. Though able to get around. Able to get from the house to her mailbox. Poor appetite. Normally has a bowel movement once every week. Denies any pain. Patient had had a coronary stent placed, in 2021. Has some chronic shortness breath and cough. Sometimes yellow-white sputum. CT brain in the ER showed multiple bilateral supratentorial infratentorial lesions felt to be metastatic including vasogenic edema. Denies any focal weakness. Rather tired. February 06: Daughter at the bedside. Patient is tired. Eating small amounts. Seen by Dr. Ramires from pulmonary. He feels the lung lesion is very small. Not really amenable to biopsy. MRI brain was done. February 07: In bed. Daughter at the bedside. Sisters at bedside. Dr. RAMIRES will be arranging outpatient bronchoscopy with ultrasound with Dr. Negron. Spoke to patient's daughter and the patient. Daughter will take the patient to patient's brother's house. Hospital bed, walker, bedside commode will be ordered. Home health care. Spoke with chong leather case finisher. Prognosis remains guarded. Did try to address the CODE STATUS. At this point remains full code. February 08: Saw the patient this morning. Lethargic. Able to answer simple questions. Plan to discharge the patient later home today. Patient more lethargic this afternoon. Nurse called me. Went back and saw the patient. Rather encephalopathic. Spoke to patient daughter at the bedside. Agreed to make her DNR. Recommended hospice. material liaison Daria present. Arrangements being made to be discharged home. Equipment being ordered. Active Medications Acetaminophen (Acetaminophen Tab 325 Mg Tab) 650 mg PO Q6HR PRN PRN Reason: Mild Pain or Fever > 100.5 Hydrocodone Bitart/Acetaminophen (Hydrocodone/Apap 5-325mg 1 Each Tab) 1 each PO Q6HR PRN PRN Reason: Pain Albuterol/Ipratropium (Ipratropium-Albuterol 3 Ml Neb) 3 ml INHALATION RT-QID [facility] Last Admin: 02/09/24 15:46 Dose: Not Given Alprazolam (Alprazolam 0.25 Mg Tab) 0.25 mg PO Q6HR PRN PRN Reason: Anxiety Aspirin (Aspirin 81 Mg) 81 mg PO DAILY [facility] Last Admin: 02/09/24 09:09 Dose: 81 mg Atorvastatin Calcium (Atorvastatin 80 Mg Tab) 80 mg PO HS [facility] Last Admin: 02/08/24 20:36 Dose: 80 mg Budesonide (Budesonide 1 Mg/2 Ml Nebu) 1 mg INHALATION RT-BID [facility] Last Admin: 02/09/24 08:45 Dose: 1 mg Buspirone HCl (Buspirone Hcl 5 Mg Tab) 5 mg PO BID PRN PRN Reason: Anxiety Calcium Carbonate/Glycine (Calcium Carbonate 500 Mg Chewable) 1,000 mg PO Q4HR PRN PRN Reason: Dyspepsia Clotrimazole (Clotrimazole 1% Cream 30 Gm Tube) 1 applic TOPICAL BID [facility] Last Admin: 02/09/24 09:09 Dose: Not Given Dexamethasone (Dexamethasone 4 Mg Tab) 4 mg PO Q6HR [facility] Last Admin: 02/09/24 12:54 Dose: Not Given Dextrose/Water (Dextrose 50% Syringe 50 Ml) 25 ml IVP PER PROTOCOL PRN; Protocol PRN Reason: Hypoglycemia Dextrose/Water (Dextrose 50% Syringe 50 Ml) 50 ml IVP PER PROTOCOL PRN; Protocol PRN Reason: Hypoglycemia Enoxaparin Sodium (Enoxaparin 40 Mg/0.4 Ml Syringe) 40 mg SQ DAILY [facility] Last Admin: 02/09/24 09:07 Dose: 40 mg Ergocalciferol (Ergocalciferol 1,250 Mcg (50,000 Iu) Capsule) 1,250 mcg PO MOWE [facility] Last Admin: 02/08/24 08:36 Dose: 1,250 mcg Fluoxetine HCl (Fluoxetine Hcl 20 Mg Cap) 60 mg PO DAILY [facility] Last Admin: 02/09/24 09:08 Dose: 60 mg Gabapentin (Gabapentin 100 Mg Cap) 100 mg PO TID [facility] Last Admin: 02/09/24 09:09 Dose: 100 mg Sodium Chloride (Saline 0.9%) 1,000 mls @ 75 mls/hr IV .[id number] [facility] Last Admin: 02/09/24 03:06 Dose: 75 mls/hr Insulin Aspart (Insulin Aspart (Novolog) 100 Unit/Ml Vial) 0 unit SQ [facility]; Protocol Last Admin: 02/09/24 13:12 Dose: 6 unit Insulin Detemir (Insulin Detemir (Levemir) 100 Unit/Ml Syr) 36 unit SQ HS@2000 [facility] Last Admin: 02/08/24 20:39 Dose: 36 unit Isosorbide Mononitrate (Isosorbide Mononitrate Er 30 Mg Tab.Er.24h) 30 mg PO DAILY [facility] Last Admin: 02/09/24 09:09 Dose: 30 mg Lactulose (Lactulose 20 Gm/30 Ml Cup) 20 gm PO DAILY PRN PRN Reason: Constipation Losartan Potassium (Losartan 25 Mg Tab) 12.5 mg PO DAILY [facility] Last Admin: 02/09/24 09:09 Dose: 12.5 mg Melatonin (Melatonin 3 Mg Tablet) 3 mg PO HS PRN PRN Reason: Insomnia Metoprolol Tartrate (Metoprolol Tartrate 25 Mg Tab) 25 mg PO BID [facility] Last Admin: 02/09/24 09:09 Dose: 25 mg Naloxone HCl (Naloxone 0.4 Mg/Ml 1 Ml Vial) 0.2 mg IV Q2M PRN PRN Reason: Opioid Reversal Nicotine (Nicotine 21mg/24hr Patch) 1 patch TRANSDERM DAILY [facility] Last Admin: 02/09/24 09:08 Dose: Not Given Nitroglycerin (Nitroglycerin Sl Tabs 0.4 Mg Tab) 0.4 mg SUBLINGUAL Q5M PRN PRN Reason: Chest Pain Ondansetron HCl (Ondansetron 4 Mg/2 Ml Vial) 4 mg IVP Q8HR PRN PRN Reason: Nausea And Vomiting Last Admin: 02/09/24 05:38 Dose: 4 mg Pantoprazole Sodium (Pantoprazole 40 Mg Tablet) 40 mg PO AC-BRKFST [facility] Last Admin: 02/09/24 09:08 Dose: 40 mg Social history: Patient lives with her elderly mother 89 years of age. Smokes a pack a day for close to 50 years. No alcohol. Physical examination: VITAL SIGNS: 98.1, 87, 16, 171 x 96, 94% 2 L GENERAL: , Lethargic EYES: Pupils equal. Conjunctiva pale. HEENT: External appearance of nose and ears normal, oral cavity grossly normal. NECK: JVD not raised; masses not palpable. HEART: First and second heart sounds are normal; no edema. LUNGS: Respiratory rate increased, depressed breath sound ABDOMEN: Soft, nontender, liver spleen not palpable, no masses palpable. PSYCH: Barely arousable MUSCULOSKELETAL:No Clubbing/cyanosis;muscles-grossly intact INVESTIGATIONS, reviewed in the clinical context: MRI brain [February 06] multiple brain metastasis involve the supratentorial infratentorial spaces. Partially necrotic and hemorrhagic. Varying degrees of vasogenic edema. February 05: White count 7.8 hemoglobin 15.4 platelets 349 sodium 137 potassium 4.9 creatinine 0.8 Urine tox screen: Negative Influenza type A, type B, RSV, COVID-19: Not detected CT brain: Multiple bilateral supratentorial infratentorial lesions. Vasogenic edema present. Chest abdomen and pelvis CT scan with contrast: Enlarged right peribronchial lymph node in the posterior left hilar region. 1.8 cm. Right infrahilar lymph node 1.4 cm. Left lung posterior medial spiculated mass 2.2 x 1.1 cm. Liver mild fatty infiltration. Assessment plan: -Patient has metastatic brain lesions with vasogenic edema. Causing acute metabolic encephalopathy/delirium. Slow response IV dexamethasone -Acute metabolic encephalopathy from brain metastasis and vasogenic edema -Metastatic disease suspected lung cancer. smoker for long time. Will need a tissue diagnosis. Per Dr. Ramires patient, bronchoscopy with ultrasound with Dr. Negron outpatient. -Prior history of rectal cancer around 4 years ago that was surgically resected -Moderate COPD exacerbation in a current smoker DuoNeb 4 times daily. Pulmicort twice daily. -Chronic nicotine dependence cigarette smoker Nicotine patch -Hyperlipidemia Crestor 40 mg a day -Depression anxiety Prozac 60 mg a day BuSpar as needed -Diabetes mellitus type 2 on oral hypoglycemic, uncontrolled with hyperglycemia secondary to steroids On insulin drip Tonight, start the patient on Lantus 36 units. Stop insulin drip. -GERD Omeprazole 40 mg a day -Coronary artery devious stent in 2021 Add aspirin. Imdur ER. Cozaar. Crestor. -Acute medical debility from above. Patient not really able to get out of bed except bedside commode. -DNR Advance care planning [February 09, 2024] Patient has a clinical worsening. Now with metabolic encephalopathy likely from vasogenic edema. Lengthy discussion with the patient's daughter. She wants the patient to become DNR. Hospice consulted for informational visit so patient can be transported home with hospice. As patient otherwise comfortable will not qualify for [facility]. Questions answered. Transport with ambulance Time spent about 30 minutes Past Medical History Past Medical History: Cancer, COPD, Diabetes Mellitus, GERD/Reflux, Hyperlipidemia, Osteoarthritis (OA) Additional Past Medical History / Comment(s): Hx Covid Spring 2020. Uses O2 at 3L PRN. Hx rectal cancer within last 4 yrs(Can't remember exactly when). Bronchitis. Frequent ear infections. History of Any Multi-Drug Resistant Organisms: None Reported Past Surgical History: Cholecystectomy, Ear Surgery, Hernia Repair, Hysterectomy, Orthopedic Surgery Additional Past Surgical History / Comment(s): Hernia repair X3, throat surgery, ear surgeray X5, bilateral wrist surgery X5 total, hemorrhoidectomy - "was cancerous and they went back in to remove more". stents X 2 CX sep 13 2021. Past Anesthesia/Blood Transfusion Reactions: No Reported Reaction Past Psychological History: Anxiety, Depression Smoking Status: Current every day smoker Past Alcohol Use History: None Reported Additional Past Alcohol Use History / Comment(s): Smokes cigars, 1 ppd, since 17 yrs of age. Past Drug Use History: None Reported
--- NOTE | 2024-02-09 17:12 | P.DS ---
Providers Date of admission: 02/05/24 19:57 Expected date of discharge: 02/09/24 (Patient ) Attending physician: Aston Lyn Consults: 02/05/24 19:55 Consult Physician Routine Consulting Provider: Santa Desir Consult Reason/Comments: [place] Do you want consulting provider notified?: Yes 02/06/24 09:25 Consult Physician Routine Consulting Provider: David Adhikari Consult Reason/Comments: brain mets Do you want consulting provider notified?: Yes 02/06/24 11:34 Consult Physician Routine Consulting Provider: Kimberly Vivas Consult Reason/Comments: lung mass Do you want consulting provider notified?: Yes Primary care physician: [facility] Course: Chief Complaint: Increased weakness confusion This is a pleasant 69-year-old patient follows with Dr. Martell. Patient is accompanied by her daughter and son-in-law and granddaughter in the room. Chronic medical condition include COPD, diabetes, GERD, hyperlipidemia, osteoarthritis, COVID in 2020, uses oxygen as needed,. Had rectal cancer treated with surgery about 4 years ago. Anxiety depression For about 3 days patient been slightly confused. Feeling more weak. Though able to get around. Able to get from the house to her mailbox. Poor appetite. Normally has a bowel movement once every week. Denies any pain. Patient had had a coronary stent placed, in 2021. Has some chronic shortness breath and cough. Sometimes yellow-white sputum. CT brain in the ER showed multiple bilateral supratentorial infratentorial lesions felt to be metastatic including vasogenic edema. Denies any focal weakness. Rather tired. February 06: Daughter at the bedside. Patient is tired. Eating small amounts. Seen by Dr. Ramires from pulmonary. He feels the lung lesion is very small. Not really amenable to biopsy. MRI brain was done. February 07: In bed. Daughter at the bedside. Sisters at bedside. Dr. RAMIRES will be arranging outpatient bronchoscopy with ultrasound with Dr. Negron. Spoke to patient's daughter and the patient. Daughter will take the patient to patient's brother's house. Hospital bed, walker, bedside commode will be ordered. Home health care. Spoke with chong case planner. Prognosis remains guarded. Did try to address the CODE STATUS. At this point remains full code. October 10: Saw the patient this morning. Lethargic. Able to answer simple questions. Plan to discharge the patient later home today. Patient more lethargic this afternoon. Nurse called me. Went back and saw the patient. Rather encephalopathic. Spoke to patient daughter at the bedside. Agreed to make her DNR. Recommended hospice. police liaison Daria present. Arrangements being made to be discharged home. Equipment being ordered. Later afternoon nurse Genet called me that patient . Social history: Patient lives with her elderly mother 89 years of age. Smokes a pack a day for close to 50 years. No alcohol. INVESTIGATIONS, reviewed in the clinical context: MRI brain [February 06] multiple brain metastasis involve the supratentorial infratentorial spaces. Partially necrotic and hemorrhagic. Varying degrees of vasogenic edema. February 05: White count 7.8 hemoglobin 15.4 platelets 349 sodium 137 potassium 4.9 creatinine 0.8 Urine tox screen: Negative Influenza type A, type B, RSV, COVID-19: Not detected CT brain: Multiple bilateral supratentorial infratentorial lesions. Vasogenic edema present. Chest abdomen and pelvis CT scan with contrast: Enlarged right peribronchial lymph node in the posterior left hilar region. 1.8 cm. Right infrahilar lymph node 1.4 cm. Left lung posterior medial spiculated mass 2.2 x 1.1 cm. Liver mild fatty infiltration. Probable cause of : Lung cancer with metastasis Assessment plan: -Patient has metastatic brain lesions with vasogenic edema. Causing acute metabolic encephalopathy/delirium. Slow response IV dexamethasone -Acute metabolic encephalopathy from brain metastasis and vasogenic edema -Metastatic disease suspected lung cancer. smoker for long time. Will need a tissue diagnosis. Per Dr. Ramires patient, bronchoscopy with ultrasound with Dr. Jamil andres. -Prior history of rectal cancer around 4 years ago that was surgically resected -Moderate COPD exacerbation in a current smoker DuoNeb 4 times daily. Pulmicort twice daily. -Chronic nicotine dependence cigarette smoker Nicotine patch -Hyperlipidemia Crestor 40 mg a day -Depression anxiety Prozac 60 mg a day BuSpar as needed -Diabetes mellitus type 2 on oral hypoglycemic, uncontrolled with hyperglycemia secondary to steroids On insulin drip Tonight, start the patient on Lantus 36 units. Stop insulin drip. -GERD Omeprazole 40 mg a day -Coronary artery devious stent in 2021 Add aspirin. Imdur ER. Cozaar. Crestor. -Acute medical debility from above. Patient not really able to get out of bed except bedside commode. -DNR Advance care planning [February 09, 2024] Patient has a clinical worsening. Now with metabolic encephalopathy likely from vasogenic edema. Lengthy discussion with the patient's daughter. She wants the patient to become DNR. Hospice consulted for informational visit so patient can be transported home with hospice. As patient otherwise comfortable will not qualify for [facility]. Questions answered. Transport with ambulance Time spent about 30 minutes Disposition: Patient Past Medical History Past Medical History: Cancer, COPD, Diabetes Mellitus, GERD/Reflux, Hyperlipidemia, Osteoarthritis (OA) Additional Past Medical History / Comment(s): Hx Covid Spring 2020. Uses O2 at 3L PRN. Hx rectal cancer within last 4 yrs(Can't remember exactly when). Bronchitis. Frequent ear infections. History of Any Multi-Drug Resistant Organisms: None Reported Past Surgical History: Cholecystectomy, Ear Surgery, Hernia Repair, Hysterectomy, Orthopedic Surgery Additional Past Surgical History / Comment(s): Hernia repair X3, throat surgery, ear surgeray X5, bilateral wrist surgery X5 total, hemorrhoidectomy - "was cancerous and they went back in to remove more". stents X 2 CX sep 13 2021. Past Anesthesia/Blood Transfusion Reactions: No Reported Reaction Past Psychological History: Anxiety, Depression Smoking Status: Current every day smoker Past Alcohol Use History: None Reported Additional Past Alcohol Use History / Comment(s): Smokes cigars, 1 ppd, since 17 yrs of age. Past Drug Use History: None Reported Plan - Discharge Summary Discharge Rx Participant: No New Discharge Prescriptions: New Aspirin 81 mg PO DAILY tab Ipratropium-Albuterol Nebulize [Duoneb 0.5 mg-3 mg/3 ml Soln] 3 ml INHALATION TID #90 each dexAMETHasone ORAL [Hexadrol] 4 mg PO Q6HR #90 tab Melatonin 3 mg PO HS PRN #30 tab PRN Reason: Insomnia Pantoprazole [Protonix] 40 mg PO AC-BRKFST #30 tab Nicotine 21Mg/24Hr Patch [Habitrol] 1 patch TRANSDERM DAILY #30 patch Continue metFORMIN HCL [Glucophage] 1,000 mg PO BID Gabapentin [Neurontin] 100 mg PO DIRECTED FLUoxetine HCL [PROzac] 60 mg PO DAILY Metoprolol Tartrate [Lopressor] 25 mg PO BID #60 tab Rosuvastatin Calcium [Crestor] 40 mg PO DAILY Omeprazole 40 mg PO DAILY Insulin Glargine,Hum.rec.anlog [Lantus Solostar Pen] 1 dose SQ DIRECTED busPIRone HCl [Buspar] 5 mg PO BID PRN PRN Reason: Anxiety Albuterol Inhaler [Ventolin Hfa Inhaler] 2 puff INHALATION RT-QID PRN PRN Reason: Shortness Of Breath Ergocalciferol (Vitamin D2) [Drisdol (50,000 Iu)] 1,250 mcg PO DIRECTED Losartan [Cozaar] 12.5 mg PO DAILY #15 tab Nitroglycerin Sl Tabs [Nitrostat] 0.4 mg SUBLINGUAL Q5M PRN #30 tab PRN Reason: Chest Pain Montelukast [Singulair] 10 mg PO DAILY Changed Isosorbide Mononitrate ER [Imdur] 30 mg PO DAILY #0 Discontinued hydrOXYzine HCL [Atarax] 10 mg PO DAILY PRN PRN Reason: Itching Ketoconazole 200 mg PO DAILY Albuterol Nebulized [Ventolin Nebulized] 2.5 mg INHALATION RT-Q6H PRN PRN Reason: Shortness Of Breath hydroCHLOROthiazide [Hydrodiuril] 12.5 mg PO DAILY Discharge Medication List metFORMIN HCL [Glucophage] 1,000 mg PO BID 05/07/21 [History] Albuterol Inhaler [Ventolin Hfa Inhaler] 2 puff INHALATION RT-QID PRN 09/14/21 [History] Ergocalciferol (Vitamin D2) [Drisdol (50,000 Iu)] 1,250 mcg PO DIRECTED 09/14/21 [History] FLUoxetine HCL [PROzac] 60 mg PO DAILY 09/14/21 [History] Gabapentin [Neurontin] 100 mg PO DIRECTED 09/14/21 [History] Insulin Glargine,Hum.rec.anlog [Lantus Solostar Pen] 1 dose SQ DIRECTED 09/14/21 [History] busPIRone HCl [Buspar] 5 mg PO BID PRN 09/14/21 [History] Losartan [Cozaar] 12.5 mg PO DAILY #15 tab 09/15/21 [Rx] Metoprolol Tartrate [Lopressor] 25 mg PO BID #60 tab 09/15/21 [Rx] Nitroglycerin Sl Tabs [Nitrostat] 0.4 mg SUBLINGUAL Q5M PRN #30 tab 09/15/21 [Rx] Montelukast [Singulair] 10 mg PO DAILY 02/06/24 [History] Omeprazole 40 mg PO DAILY 02/06/24 [History] Rosuvastatin Calcium [Crestor] 40 mg PO DAILY 02/06/24 [History] Aspirin 81 mg PO DAILY tab 02/09/24 [Rx] Ipratropium-Albuterol Nebulize [Duoneb 0.5 mg-3 mg/3 ml Soln] 3 ml INHALATION TID #90 each 02/09/24 [Rx] Isosorbide Mononitrate ER [Imdur] 30 mg PO DAILY #0 02/09/24 [Rx] Melatonin 3 mg PO HS PRN #30 tab 02/09/24 [Rx] Nicotine 21Mg/24Hr Patch [Habitrol] 1 patch TRANSDERM DAILY #30 patch 02/09/24 [Rx] Pantoprazole [Protonix] 40 mg PO AC-BRKFST #30 tab 02/09/24 [Rx] dexAMETHasone ORAL [Hexadrol] 4 mg PO Q6HR #90 tab 02/09/24 [Rx] Follow up Appointment(s)/Referral(s): Santa Desir MD [STAFF PHYSICIAN] - 02/20/24 10:30 am (please bring completed paperwork with you to appointment.) [facility] [NON-STAFF] - 1 Week Finn Martell MD [Primary Care Provider] - 02/17/24 1:00 pm ([facility] : [phone] Appointment w/ Daria GREEN) [facility], [NON-STAFF] - David Adhikari MD [STAFF PHYSICIAN] - 02/20/24 9:30 am Tabitha Negron MD [STAFF PHYSICIAN] - 1 Week Activity/Diet/Wound Care/Special Instructions: Patient requires a hospital bed at discharge to maintain head of bed greater than 30 degrees to manage orthopnea from COPD Patient requires a bedside commode due to being room confirmed from COPD Patient requires a transport chair to assist with ADLs not able to be performed with the use of a cane or walker. She has a caregiver who will propel the chair, she cannot self propel related to copd Dc after ok with dr josé adhikari Get follow-up orders from Dr. Ramires for bronchoscopy appointment with Dr. Hernandez
== END 2024-02-09 17:49 | disposition expired | DRG 180 ==
LOC: EC 17:29 → 5NMEDONC 19:57 → 3SCARD 02-06 20:56 → 5NMEDONC 02-08 22:45
PROVIDERS: ADMIT Hospitalist; ATTEND Hospitalist
DX: C34.92 Malignant neoplasm of unspecified part of left bronchus or lung (principal); G93.41 Metabolic encephalopathy; G93.6 Cerebral edema; C78.7 Secondary malignant neoplasm of liver and intrahepatic bile duct; C79.31 Secondary malignant neoplasm of brain; F05 Delirium due to known physiological condition; J44.1 Chronic obstructive pulmonary disease with (acute) exacerbation; Z66 Do not resuscitate; Z51.5 Encounter for palliative care; N28.1 Cyst of kidney, acquired; E11.65 Type 2 diabetes mellitus with hyperglycemia; E78.5 Hyperlipidemia, unspecified; F17.210 Nicotine dependence, cigarettes, uncomplicated; F32.A Depression, unspecified; F41.9 Anxiety disorder, unspecified; K21.9 Gastro-esophageal reflux disease without esophagitis; K76.0 Fatty (change of) liver, not elsewhere classified; T38.0X5A Adverse effect of glucocorticoids and synthetic analogues, initial encounter; Z79.4 Long term (current) use of insulin; Z79.82 Long term (current) use of aspirin; Z79.84 Long term (current) use of oral hypoglycemic drugs; Z79.899 Other long term (current) drug therapy; Z85.048 Personal history of other malignant neoplasm of rectum, rectosigmoid junction, and anus; Z86.16 Personal history of COVID-19; Z90.710 Acquired absence of both cervix and uterus; Z95.5 Presence of coronary angioplasty implant and graft; Z90.49 Acquired absence of other specified parts of digestive tract; Z80.8 Family history of malignant neoplasm of other organs or systems
CPT/HCPCS: 36415; 70450; 70553; 71260; 74177; 80053; 80306; 81003; 83036; 83735; 84100; 84484; 85025; 85610; 85730; 87636; 93005; 94640; 96361; 96374; 99291